=== PATIENT | male | born 1980 | race Two or more races ===

== ENCOUNTER 2024-12-13 16:18 | Inpatient (IN) | payer MEDICAID, OTHER ==
[~2024-12-13] VITALS: Ht 167.6 cm; Wt 106.7 kg
--- NOTE | 2024-12-13 16:48 | ED.PDOC ---
HPI (NEURO) HPI Comments 43 year old male presents to the ED with chief complaint of dizziness. Patient reports that he has been experiencing dizziness with associated left sided weakness since 1330 today. Patient relays that he had similar symptoms 2 years ago, but never went to an ED at that time. Patient's BP was noted to be 247/113 in triage. Patient denies any headache, chest pain, SOB, or N/V. At time of the initial evaluation, patient was BEFAST negative with equal strength bilaterally. Chief Complaint: Dizziness Time Seen by MD: 16:43 Reviewed Notes: Nurses Notes, Medications, Allergies Information Source: Patient, Relative (Sister) Mode of Arrival: Wheelchair Severity: Moderate Dizziness/Weakness Severity: Unable to do activities Headache Severity: None Timing: Days Duration: Since onset Prehospital treatment: None Weakness Location: (L) Sided, (L) Arm, Facial Onset: At rest Circumstances: Spontaneous Symptoms: Weakness Before: Normal History of: Hypertension Modifying factors: Nothing Associated Signs and Symptoms: Weakness Past Medical History PAST MEDICAL HISTORY: HTN Past Medical History (Other): Possible CVA event Surgical History: Denies all surgeries Family History Family History: Reviewed,noncontributory to illness Social History Smoker: Non-Smoker Alcohol: Denies ETOH Use Drugs: Denies Drug Use Lives In: Home Constitutional: denies: chills, diaphoresis, fatigue, fever, malaise, sweats, weakness, others EENTM: denies: blurred vision, double vision, ear bleeding, ear discharge, ear drainage, ear pain, ear ringing, eye pain, eye redness, hearing loss, mouth pain, mouth swelling, nasal discharge, nose bleeding, nose congestion, nose pain, photophobia, tearing, throat pain, throat swelling, voice changes, others Respiratory: denies: cough, hemoptysis, orthopnea, SOB at rest, shortness of breath, SOB with excertion, stridor, wheezing, others Cardiovascular: denies: chest pain, dizzy spells, diaphoresis, Dyspnea on exertion, edema, irregular heart beat, left arm pain, lightheadedness, palpitations, PND, syncope, others Gastrointestinal: denies: abdomen distended, abdominal pain, blood streaked bowels, constipated, diarrhea, dysphagia, difficulty swallowing, hematemesis, melena, nausea, poor appetite, poor fluid intake, rectal bleeding, rectal pain, vomiting, others Genitourinary: denies: burning, dysuria, flank pain, frequency, hematuria, incontinence, penile discharge, penile sore, pain, testicle pain, testicle swelling, urgency, others Neurological: reports: dizziness, left sided weakness; denies: fainting, headache, left sided numbness, numbness, paresthesia, pre-existing deficit, right sided numbness, right sided weakness, seizure, speech problems, tingling, tremors, weakness, others Musculoskeletal: denies: back pain, gout, joint pain, joint swelling, muscle pain, muscle stiffness, neck pain, others Integumetry: denies: bruises, change in color, change in hair/nails, dryness, laceration, lesions, lumps, rash, wounds, others Allergic/Immunocompromised: denies: Difficulty Healing, Frequent Infections, Hives, Itching, others Hematologic/Lymphatic: denies: anemia, blood clots, easy bleeding, easy bruising, swollen glands, others Endocrine: denies: excessive hunger, excessive sweating, excessive thirst, excessive urination, flushing, intolerance to cold, intolerance to heat, unexplained weight gain, unexplained weight loss, others Psychiatric: denies: anxiety, bipolar disorder, depression, hopeless, panic disorder, schizophrenia, sleepless, suicidal, others All Other Systems: Reviewed and Negative Physical Exam General Appearance: Moderate Distress ( [id number] distress due to headache and stroke concerns. Patient did seems slow to respond to questions.), Normal HEENT: Normal ENT Inspection, Pharynx Normal, TMs Normal, Other ( Facial evaluation was unremarkable. Patient displayed equal consistencies throughout patient will evaluation including puffing of the cheeks and closing of the eyes. No drooping noted) Neck: Full Range of Motion, Non-Tender, Normal, Normal Inspection Respiratory: Chest Non-Tender, Lungs Clear, No Accessory Muscle Use, No Respira tory Distress, Normal Breath Sounds Cardiovascular: No Edema, No JVD, No Murmur, No Gallop, Normal Peripheral Pulses, Regular Rate/Rhythm Breast Exam: Deferred Gastrointestinal: No Organomegaly, Non Tender, No Pulsatile Mass, Normal Bowel Sounds, Soft Genitalia: Deferred Pelvic: Deferred Rectal: Deferred Extremities: Other ( Patient displayed equal c d still operator strength bilaterally without any noted arm drift. Patient stated he had some weakness on his left arm and leg, but no atrophy was noted or signs of trauma or infection.) Musculoskeletal : Apperance: Normal Neurologic: NOT DONE Cerebellar Function: NOT DONE Reflexes: NOT DONE Skin: Dry, Normal Color, Warm Lymphatic: No Adenopathy Was a procedure done? Was a procedure done?: No Differential Diagnosis (SZ) Seizure: Hyperventilation, Psychogenic Seizure, Closed Head Injury, CVA/TIA, Hypocalcemia, Hypoglycemia, Idiopathic, Mass Lesion, Encephalopathy CVA: Electrolyte Imbalance X-Ray, Labs, Meds, VS Vital Signs Date Time Temp Pulse Resp B/P (MAP) Pulse Ox O2 Delivery O2 Flow Rate FiO2 12/13/24 18:37 119 12/13/24 17:33 172/106 12/13/24 17:20 Nasal Cannula* 2 28 12/13/24 17:15 98.9 109 23 188/111 (136) 98 98.9 12/13/24 16:34 98.0 128 22 247/113 (157) 96 98.0 12/13/24 16:32 126 Lab Test 12/13/24 20:04 12/13/24 18:15 12/13/24 16:42 Range/Units Troponin I High Sensitivity 9 7 6 </=54 ng/L White Blood Count 12.0 H 4.4-10.8 10^3/uL Red Blood Count 6.50 H 4.5-5.90 10^6/uL Hemoglobin 18.5 H 13.5-17.5 g/dL Hematocrit 53.9 H 41.0-53.0 % Mean Corpuscular Volume 82.9 80.0-100.0 fL Mean Corpuscular Hemoglobin 28.4 28.0-32.0 pg Mean Corpuscular Hemoglobin Concent 34.3 32.0-36.0 g/dL Red Cell Distribution Width 12.9 11.8-14.3 % Platelet Count 240 140-450 10^3/uL Mean Platelet Volume 8.6 6.9-10.8 fL Neutrophils (%) (Auto) 80.5 H 37.0-80.0 % Lymphocytes (%) (Auto) 13.3 10.0-50.0 % Monocytes (%) (Auto) 4.5 0.0-12.0 % Eosinophils (%) (Auto) 1.0 0.0-7.0 % Basophils (%) (Auto) 0.7 0.0-2.0 % Neutrophils # (Auto) 9.7 H 1.6-8.6 10 ^3/uL Lymphocytes # (Auto) 1.6 0.4-5.4 10 ^3/uL Monocytes # (Auto) 0.5 0-1.3 10 ^3/uL Eosinophils # (Auto) 0.1 0-0.8 10 ^3/uL Basophils # (Auto) 0.1 0-0.2 10 ^3/uL Nucleated Red Blood Cells 0.1 % Sodium Level 133 L 136-145 mmol/L Potassium Level 3.7 3.5-5.1 mmol/L Chloride Level 96 L 98-107 mmol/L Carbon Dioxide Level 22 20-31 mmol/L Anion Gap 15 5-15 Blood Urea Nitrogen 13 9-23 mg/dL Creatinine 1.07 0.700-1.30 mg/dL Glomerular Filtration Rate Calc 89 >90 mL/min BUN/Creatinine Ratio 12.1 10.0-20.0 Serum Glucose 357 H 74-106 mg/dL Calcium Level 9.9 8.7-10.4 mg/dL Total Bilirubin 1.0 0.2-1.0 mg/dL Aspartate Amino Transferase (AST) 25 13-40 U/L Alanine Aminotransferase (ALT) 49 H 7-40 U/L Alkaline Phosphatase 148 H 46-116 U/L B-Type Natriuretic Peptide 15.00 0-100 pg/mL Total Protein 7.5 5.7-8.2 g/dL Albumin 5.0 H 3.2-4.8 g/dL Current Medications Medications (Trade) Dose Ordered Sig/Javier Route Start Time Stop Time Status Last Admin Hydralazine HCl (Apresoline Injection) 20 mg ONCE ONCE IV 12/13/24 16:45 12/13/24 16:46 DC 12/13/24 17:33 Aspirin 81 mg ONCE ONCE PO 12/13/24 19:30 12/13/24 19:31 DC 12/13/24 19:30 Clopidogrel Bisulfate (Plavix) 75 mg ONCE ONCE PO 12/13/24 19:30 12/13/24 19:31 DC 12/13/24 20:10 X-Ray, Labs, Meds, VS Comment All studies performed the ED were evaluated by me personally.Urinalysis was pending at time of this note. Serum studies revealed a hyperglycemic state with an elevated alk-phos and a mild hyponatremia. EKG revealed a sinus or ectopic atrial tachycardia with a rate of 126. Right axis deviation with a MI interval 93 and a QT interval of 325. Patient's troponins were all unremarkable. Chest x-ray was unremarkable for any consolidation or intrapulmonary concerns. Initial CT of the head revealed a short segment 1 to 2 mm in length moderate stenosis of the origin of the left posterior cerebral artery from the basilar artery. Moderate stenosis of the super clinoid segment of the right ICA. No large vessel occlusion noted in the head and neck. Nursing notified me after 2 hours of being in the ED the patient started displays signs of left-sided facial weakness as well as left arm weakness. A CTA of the head and neck was ordered for evaluation of thrombotic concerns. A small 9 mm hypoattenuating focus is s een in the left anterior centrum semi level which may reflect indeterminate age infarct. Recommended a brain MRI for further evaluation. Chronic microvascular ischemic changes. I spoke with Dr. Kwan and Dr. Zoya bailey with respect of the patient's head CTs. Both stated that the patient did not appear to be having a stroke concern and additionally, patient was outside the window of any intervention. Patient received a tele neuro consult with Dr. Fenton. He advised that the patient appears to be experiencing some deficit due to the stenosis rather than a definitive stroke concern. He advised controlling blood pressure concerns as well as 81 mg of ASA and 75 mg of Plavix. Patient will be admitted for continued evaluation as well as neuro consultation and MRI of brain tomorrow. Time of 1ST Reevaluation: 17:43 Reevaluation 1ST: Unchanged Consultation: PCP, Neurology Patient Education/Counseling: Diagnosis, Treatment Family Education/Counseling: Diagnosis, Treatment, No Family Present Departure 1 Departure Time of Disposition: 21:59 Impression: Primary Impression: Encephalopathy Additional Impressions: Arterial stenosis Cerebrovascular event Disposition: 09 ADMITTED INPATIENT Condition: Fair Discharged With: Self, Relative Critical Care Note Critical Care Time?: Yes (45 min-critical care time only) Critical care comment: Due to a high probability of a clinically significant and possibly life- threatening deterioration, this patient required my highest level of preparedness to intervene emergently and therefore, I personally provided 45 mi nutes of critical care time exclusive of time spent on separate billable procedures. This critical care time includes, but is not limited to, obtaining additional history, re-examination of the patient, pulse oximetry assessment, ordering and reviewing of additional studies as well as arranging urgent treatment with the development of a management plan. Continued, evaluation of t he patient's response to treatment as well as frequent reassessments and discussions with other providers. Stability Stability form required: No Heart Score Heart Score: Heart Score Response (Comments) Value History Moderate Suspicious 1 EKG Normal 0 Age <45 0 Risk Factors 1 or 2 risk factors 1 Troponin Normal limit 0 Total 2 I personally scribed for SUZIE AKHTAR PAC ([email or web address]) on 12/13/24 at 16:48. Electronically submitted by Juan M Mead ([email or web address]). SUZIE AKHTAR PAC Dec 13, 2024 16:48
[2024-12-13 16:57] LABS: Basophils # (auto) 0.1 10 ^3/uL (0-0.2); Basophils % (auto) 0.7 % (0.0-2.0); Eosinophils # (auto) 0.1 10 ^3/uL (0-0.8); Hematocrit 53.9 % (41.0-53.0); Hemoglobin 18.5 g/dL (13.5-17.5); Lymphocytes # (auto) 1.6 10 ^3/uL (0.4-5.4); Lymphocytes % (auto) 13.3 % (10.0-50.0); Mean Corpuscular Hemoglobin 28.4 pg (28.0-32.0); Mean Corpuscular Hgb Conc. 34.3 g/dL (32.0-36.0); Mean Corpuscular Volume 82.9 fL (80.0-100.0); Monocytes # (auto) 0.5 10 ^3/uL (0-1.3); Monocytes % (auto) 4.5 % (0.0-12.0); Neutrophils # (auto) 9.7 10 ^3/uL (1.6-8.6); Neutrophils % (auto) 80.5 % (37.0-80.0); Nucleated Red Blood Cells % 0.1 %; Platelet Count (auto) 240 10^3/uL (140-450); Red Cell Distribution Width 12.9 % (11.8-14.3)
[2024-12-13 17:11] LABS: Anion Gap 15 (5-15); Aspartate Aminotransferase 25 U/L (13-40); BUN/Creatinine Ratio 12.1 (10.0-20.0); Blood Urea Nitrogen 13 mg/dL (9-23); Calcium 9.9 mg/dL (8.7-10.4); Carbon Dioxide 22 mmol/L (20-31); Potassium 3.7 mmol/L (3.5-5.1); Total Protein 7.5 g/dL (5.7-8.2)
--- NOTE | 2024-12-13 17:32 | DVH ---
EXAM: CT HEAD WITHOUT CONTRAST HISTORY: Altered mental status COMPARISON: None TECHNIQUE: Axial images were obtained and reformatted in coronal and sagittal planes. All CT scans at this medical facility are performed using dose modulation techniques as appropriate t o a performed exam including the following: Automated exposure control was utilized; adjustment of th e MA and/or KV according to patient size; and use of iterative reconstruction technique. CT Dose: CTDI volume is 53.94 mGy. Dose-length product is 973.84 mGy*cm FINDINGS: Supratentorial Region: No evidence for large acute territorial ischemia. Small left frontal subcorti nile white matter hypoattenuation. No intracranial hemorrhage is noted. Posterior Fossa: No acute abnormality. Brainstem: Unremarkable. Sellar/Suprasellar Region: Unremarkable. Ventricles, Cisterns, Sulci: Age-appropriate. Orbits: Unremarkable. Paranasal Sinuses: Unremarkable. Mastoid Air Cells: Unremarkable. Vasculature: Intracranial arterial calcified plaque formation noted. Bones/Soft Tissues: No acute abnormality. Other: None. IMPRESSION: 1. No large acute territorial ischemia or intracranial hemorrhage. 2. Small focus of subcortical white matter hypoattenuation that may represent chronic microvascular i schemic changes or other white matter disorders related to underlying migraine , Atherosclerotic dise ase, hypertension or demyelination disorders. Atherosclerotic calcification of the intracranial inter nal carotid, vertebral and basilar arteries are noted that are advanced for patient's age.
[2024-12-13] MEDS: hydrALAZINE HCL 20 MG/ML VL IV ONE (17:33)
--- NOTE | 2024-12-13 17:44 | DVH ---
EXAM: XY CHEST PORTABLE TECHNIQUE: Single frontal chest radiograph CLINICAL HISTORY: Shortness a breath COMPARISON: None Findings/Impression: Frontal chest radiograph demonstrates no acute osseous or superficial soft tissue abnormalities. The trachea is midline. The cardiac silhouette and mediastinum are within normal limits. No pneumothorax, pleural effusions, or consolidations.
[2024-12-13 17:49] LABS: Alanine Aminotransferase 49 U/L (7-40); Alkaline Phosphatase 148 U/L (46-116); Chloride 96 mmol/L (98-107); Glucose 357 mg/dL (74-106); Sodium 133 mmol/L (136-145)
[2024-12-13] MEDS: IOHEXOL 350 MG/ML 100ML IJ ONE (19:12)
--- NOTE | 2024-12-13 19:17 | BSKYNEURO ---
[facility] Note # Demographics Consult Type: Acute Stroke Level 2 (4.5-24 hrs) Patient Location: Emergency Room First Name: WALTER Last Name: MAREN OLIVEIRA Date of : 1980 Age: 43 Gender: Male Facility: [facility] Time of Initial Page (): 12/13/2024 18:37 Time of Return Call (): 12/13/2024 18:38 # HPI History: 43yo man presents with dizziness, slurred speech, left arm weakness, left lower leg weakness, and left facial droop. The symptoms were first noted by his sister at approximately 1:00 PM. The patient does not take blood thinning medications daily. Last Known Normal: 1300 today Associated Symptoms: - dizziness # Scores Time of exam and NIHSS (): 12/13/2024 18:54 Level of Consciousness 1a: [0] = Alert; keenly responsive LOC Questions 1b: [0] = Answers both questions correctly LOC Commands 1c: [0] = Performs both tasks correctly Best Gaze 2: [0] = Normal Visual 3: [0] = No visual loss Facial Palsy 4: [1] = Minor paralysis Motor Arm Left 5a: [1] = Drift Motor Arm Right 5b: [0] = No drift Motor Leg Left 6a: [1] = Drift Motor Leg Right 6b: [0] = No drift Limb Ataxia 7: [0] = Absent Sensory 8: [1] = Awjv-wy-soupbllt sensory loss Best Language 9: [0] = No aphasia Dysarthria 10: [1] = [id number] dysarthria Extinction and Inattention 11: [0] = No abnormality NIHSS Total: 5 # Exam Time of Exam (): 12/13/2024 18:56 Vitals: vital signs reviewed SBP: 170 DBP: 95 # PM-- Past Medical History: - hypertension - Diabetes Social History: - non-smoker - non-drinker Medications: - No antithrombotics or anticoagulants reported # Data Time Head CT personally read by me (): 12/13/2024 19:[address]: - no bleed - per radiologist read - preliminarily reviewed by me, please refer to radiology read for official reading CTA Head: no large vessel occlusion # Assessment Impression: - Ischemic Stroke (Acute) # Plan Thrombolytic/Intervention: NOT IV Thrombolysis or IA Intervention candidate Thrombolytic Exclusion: > 4.5 hours Intraarterial Exclusion: - clinical exam not consistent with presence of large vessel occlusion (LVO), can reconsider if LVO found on vascular imaging Target Blood Pressure: SBP < 220 Labs: - lipid panel Imaging: (urgency: STAT): - CT Angiogram Head and CT Angiogram Neck AND call back with results if abnormal Imaging: (urgency: routine): - MRI Brain without contrast Diagnostic Test: - echo with bubble study Therapy/Evaluation: - PT/OT evaluation - speech/swallow consultation - NPO until swallow evaluation Medication: - aspirin 81 mg PLUS clopidogrel (Plavix) 75 mg for 21 days, then monotherapy therafter DVT Prophylaxis: - SCD - chemical DVT prophylaxis Other: - If patient has any neurological deterioration please call me back immediately - LDL < 70 - telemetry monitoring - I have discussed my recommendations with the referring provider - permissive hypertension Disposition: admit # Demographics First Name: WALTER Last Name: MAREN OLIVEIRA Facility: [facility] Yes JOSE ALBERTO MORALES MD Dec 13, 2024 19:17
[2024-12-13] MEDS: ASPirin 81 mg TAB PO ONE (19:30)
--- NOTE | 2024-12-13 19:30 | DVH ---
CT STROKE CTH INDICATION: Altered mental status COMPARISON: CT HEAD WITHOUT CONTRAST on DOS: 12/13/24 TECHNIQUE: CT of the head without intravenous contrast. RADIATION DOSE: CTDIvol: 66.54 mGy, DLP: 1310.92 mGy*cm FINDINGS: Small 9 mm hypoattenuated focus is seen in the left anterior centrum semiovale which may reflect inde terminate age infarct. There is no evidence of acute intracranial hemorrhage, extra-axial collection, mass effect, midline s hift, herniation or hydrocephalus. The ventricles, sulci and cisterns are age appropriate. Chronic microvascular ischemic changes The visualized paranasal sinuses and mastoid air cells are clear. The surrounding soft tissues and o sseous structures are unremarkable. IMPRESSION: 1. Small 9 mm hypoattenuated focus is seen in the left anterior centrum semiovale which may reflect i ndeterminate age infarct. Consider brain MRI for further characterization 2. Chronic microvascular ischemic changes. 3. Critical findings discussed with Dr. Hernandez by Dr. Mera 4. via phone on 12/13/2024 07:20 PM.
--- NOTE | 2024-12-13 19:43 | DVH ---
EXAM: CT ANGIO HEAD/NECK HISTORY: Suspected CVA, LUE, Left facial weakness COMPARISON: None TECHNIQUE: CTA imaging of the neck and head was performed following the uneventful administration of intravenous contrast. Sagittal and coronal reformatted images were obtained from the source data. 3D /MIP post-processing of the source data set was performed and reviewed by the radiologist. Radiation Dose Information: CT Dose: CTDI volume is 23, 22 mGy. Dose-length product is 823 mGy*cm All CT scans at this medical facility are performed using dose modulation techniques as appropriate t o a performed exam including the following: Automated exposure control was utilized; adjustment of th e MA and/or KV according to patient size; and use of iterative reconstruction technique. FINDINGS: CTA Neck: Aortic Arch: Conventional branching. Right brachiocephalic artery: Unremarkable. Right carotid artery: Unremarkable. Right subclavian artery: Unremarkable. Right vertebral artery: Unremarkable. Left carotid artery: Minimal plaque formation at the carotid bulb without significant stenosis. Left subclavian artery: Unremarkable. Left vertebral artery: Unremarkable. Other: An approximate 1 cm hypodense nodule seen in the left thyroid lobe. CTA Head: Nikolai of Brock: The arteries of sun'aq Brock are patent, without evidence of aneurysm, stenosis or thrombosis. Atherosclerotic calcification of the bilateral carotid siphons most prominent in the rig ht supraclinoid segment with moderate stenosis. Mild calcification of the proximal basilar artery. S hort-segment ( 1-2 mm in length) moderate stenosis of the origin of the left posterior cerebral arter y from the basilar artery. Dural venous: Grossly unremarkable. Other: None. IMPRESSION: 1. Short-segment ( 1-2 mm in length) moderate stenosis of the origin of the left posterior cerebral a rtery from the basilar artery. 2. Moderate stenosis of the supraclinoid segment of the right ICA. 3. No large vessel occlusion noted in the head and neck. Critical Result: Stroke Alert Findings discussed with SUZIE AKHTAR at 12/13/2024 07:25 PM, and acknowledged receipt and understandin g of the findings. ..
[2024-12-13 20:00] VITALS: PULSE 116; RESP 25; O2SAT 98
[2024-12-13] MEDS: CLOPIDOGREL BISULFATE 75 MG TAB PO ONE (20:10)
--- NOTE | 2024-12-13 22:44 | DVHHP2 ---
History of Present Illness Reason for Visit: Left-sided weakness History of Present Illness The patient is a 43-year-old male with past medical history of hypertension and diabetes mellitus who presented to [facility] ED with complaint of dizziness. Patient reports symptoms progressively get worse with left-sided weakness, slurred speech, getting worse that prompted this visit. Patient reports having similar symptoms 2 years ago but never went to ED at that time. Patient was seen and evaluated in the ED, laboratory data shows WBC 12.0, platelets 240, sodium 133, potassium 3.7, BUN 13, creatinine 1.07, GFR 89, glucose 357, BNP 55.00, AST 25, ALT 49, albumin 5, troponin 9, blood pressure 247/113 trending down to 147/96, heart rate 128 trending down to 92, temperature 98.9 F, O2 saturation 97% on oxygen. Head CT revealing small 9 mm hypoattenuated focus is seen in the left anterior centrum semiovale which may reflect indeterminate age infarct. Patient was given hydralazine 10 mg IV x1, please see medication orders section in the computer. On my assessment, patient denied chest pain, no headache, no diaphoresis, currently on oxygen, no nausea, no vomiting, no fever, no chills. Patient was admitted for further evaluation and medical management. Past Medical History HTN, Possible CVA event Past Surgical History Denies all surgeries Family History Reviewed, noncontributory to the management of this case. Past Social History The patient lives at home, denies smoking, alcohol or illicit drugs abuse. Review of Systems Constitutional: Yes: Weakness; No: Fever, Chills, Sweats, Malaise, Other Eyes: No: Pain, Vision change, Conjunctivae inflammation, Eyelid inflammation, Other, Redness ENT: No: Ear pain, Ear discharge, Nose pain, Nose discharge, Nose congestion, Mouth pain, Mouth swelling, Throat pain, Throat swelling, Other Respiratory: No: Cough, Dry, Shortness of breath, SOB with excertion, Wheezing, Hemoptysis, Pleuritic Pain, Sputum, Wheezing, Other Cardiovascular: No: Chest Pain, Palpitations, Orthopnea, Paroxysmal Noc. Dyspnea, Edema, Lt Headedness, Other Gastrointestinal: No: Nausea, Vomiting, Abdominal Pain, Diarrhea, Constipation, Melena, Hematochezia, Other Genitourinary: No Dysuria, No Frequency, No Incontinence, No Hematuria, No Retention, No Other Musculoskeletal: No: other, neck pain, shoulder pain, arm pain, back pain, hand pain, leg pain, foot pain Neurological: Weakness (Left-sided), Other (Slurred speech); No: Numbness, Incoordination, Change in speech, Confusion, Seizures Allergies: Coded Allergies: NO KNOWN ALLERGIES (Unverified , 12/13/24) Exam Vital Signs Vital Signs Date Time Temp Pulse Resp B/P (MAP) Pulse Ox O2 Delivery O2 Flow Rate FiO2 12/13/24 18:37 119 12/13/24 17:33 172/106 12/13/24 17:20 Nasal Cannula* 2 28 12/13/24 17:15 98.9 23 98 98.9 General Appearance: Alert, Oriented X3, Cooperative, No acute distress HEENT: Atraumatic, PERRLA, EOMI, Mucous membr. moist/pink Respiratory: Clear to auscultation, Normal air movement Cardiovascular: Regular rate, Normal S1, Normal S2, No murmurs Abdominal: Normal bowel sounds, Soft, No tenderness, No hepatospenomegaly, No masses Extremities: No clubbing, No cyanosis, No edema, Normal pulses, No tenderness/swelling Skin: No rashes, No breakdown, No significant lesion Neuro: Normal tone, Sensation intact, Cranial nerves 3-12 NL, Reflexes 2+, Other (Generalized weakness, slurred speech.) Psych/Mental Status: Mental status NL, Mood NL Labs/Xrays Labs Test 12/13/24 20:04 12/13/24 16:42 Range/Units Troponin I High Sensitivity 9 </=54 ng/L White Blood Count 12.0 H 4.4-10.8 10^3/uL Red Blood Count 6.50 H 4.5-5.90 10^6/uL Hemoglobin 18.5 H 13.5-17.5 g/dL Hematocrit 53.9 H 41.0-53.0 % Mean Corpuscular Volume 82.9 80.0-100.0 fL Mean Corpuscular Hemoglobin 28.4 28.0-32.0 pg Mean Corpuscular Hemoglobin Concent 34.3 32.0-36.0 g/dL Red Cell Distribution Width 12.9 11.8-14.3 % Platelet Count 240 140-450 10^3/uL Mean Platelet Volume 8.6 6.9-10.8 fL Neutrophils (%) (Auto) 80.5 H 37.0-80.0 % Lymphocytes (%) (Auto) 13.3 10.0-50.0 % Monocytes (%) (Auto) 4.5 0.0-12.0 % Eosinophils (%) (Auto) 1.0 0.0-7.0 % Basophils (%) (Auto) 0.7 0.0-2.0 % Neutrophils # (Auto) 9.7 H 1.6-8.6 10 ^3/uL Lymphocytes # (Auto) 1.6 0.4-5.4 10 ^3/uL Monocytes # (Auto) 0.5 0-1.3 10 ^3/uL Eosinophils # (Auto) 0.1 0-0.8 10 ^3/uL Basophils # (Auto) 0.1 0-0.2 10 ^3/uL Nucleated Red Blood Cells 0.1 % Sodium Level 133 L 136-145 mmol/L Potassium Level 3.7 3.5-5.1 mmol/L Chloride Level 96 L 98-107 mmol/L Carbon Dioxide Level 22 20-31 mmol/L Anion Gap 15 5-15 Blood Urea Nitrogen 13 9-23 mg/dL Creatinine 1.07 0.700-1.30 mg/dL Glomerular Filtration Rate Calc 89 >90 mL/min BUN/Creatinine Ratio 12.1 10.0-20.0 Serum Glucose 357 H 74-106 mg/dL Calcium Level 9.9 8.7-10.4 mg/dL Total Bilirubin 1.0 0.2-1.0 mg/dL Aspartate Amino Transferase (AST) 25 13-40 U/L Alanine Aminotransferase (ALT) 49 H 7-40 U/L Alkaline Phosphatase 148 H 46-116 U/L B-Type Natriuretic Peptide 15.00 0-100 pg/mL Total Protein 7.5 5.7-8.2 g/dL Albumin 5.0 H 3.2-4.8 g/dL PATIENT: WALTER SIUACCT: [id number] UNIT: [id number] : 1980 LOC: ER ROOM / BED: / AGE / SEX: 43 / M ADM STATUS: REG ER SERVICE 1829 ORDERING PHYSICIAN: SUZIE HERNANDEZ PAC PROCEDURE(s): CTH - STROKE CTH REASON: Altered mental status ORDER NUMBER(s): [id number], ACCESSION NUMBER(s): [id number] CT STROKE CTH INDICATION: Altered mental status COMPARISON: CT HEAD WITHOUT CONTRAST on DOS: 12/13/24 TECHNIQUE: CT of the head without intravenous contrast. RADIATION DOSE: CTDIvol: 66.54 mGy, DLP: 1310.92 mGy*cm FINDINGS: Small 9 mm hypoattenuated focus is seen in the left anterior centrum semiovale which may reflect indeterminate age infarct. There is no evidence of acute intracranial hemorrhage, extra-axial collection, mass effect, midline shift, herniation or hydrocephalus. The ventricles, sulci and cisterns are age appropriate. Chronic microvascular ischemic changes The visualized paranasal sinuses and mastoid air cells are clear. The surrounding soft tissues and osseous structures are unremarkable. IMPRESSION: 1. Small 9 mm hypoattenuated focus is seen in the left anterior centrum semi ovale which may reflect indeterminate age infarct. Consider brain MRI for further characterization 2. Chronic microvascular ischemic changes. 3. Critical findings discussed with Dr. Hernandez by Dr. Mera 4. via phone on 12/13/2024 07:20 PM. ORDERING PHYSICIAN: USMAN LINN MD PROCEDURE(s): [place] - ANGIO HEAD/Neck REASON: Suspected CVA, LUE, Left facial weakness ORDER NUMBER(s): [id number], ACCESSION NUMBER(s): [id number] EXAM: CT ANGIO HEAD/NECK HISTORY: Suspected CVA, LUE, Left facial weakness COMPARISON: None TECHNIQUE: CTA imaging of the neck and head was performed following the uneventful administration of intravenous contrast. Sagittal and coronal reformatted images were obtained from the source data. 3D/MIP post-processing of the source data set was performed and reviewed by the radiologist. Radiation Dose Information: CT Dose: CTDI volume is 23, 22 mGy. Dose-length product is 823 mGy*cm All CT scans at this medical facility are performed using dose modulation techniques as appropriate to a performed exam including the following: Automated exposure control was utilized; adjustment of the MA and/or KV according to patient size; and use of iterative reconstruction technique. FINDINGS: CTA Neck: Aortic Arch: Conventional branching. Right brachiocephalic artery: Unremarkable. Right carotid artery: Unremarkable. Right subclavian artery: Unremarkable. Right vertebral artery: Unremarkable. Left carotid artery: Minimal plaque formation at the carotid bulb without significant stenosis. Left subclavian artery: Unremarkable. Left vertebral artery: Unremarkable. Other: An approximate 1 cm hypodense nodule seen in the left thyroid lobe. CTA Head: [place] of [place]: The arteries of [place] are patent, without evidence of aneurysm, stenosis or thrombosis. Atherosclerotic calcification of the bilateral carotid siphons most prominent in the right supraclinoid segment with moderate stenosis. Mild calcification of the proximal basilar artery. Short-segment (1-2 mm in length) moderate stenosis of the origin of the left posterior cerebral artery from the basilar artery. Dural venous: Grossly unremarkable. Other: None. IMPRESSION: 1. Short-segment (1-2 mm in length) moderate stenosis of the origin of the left posterior cerebral artery from the basilar artery. 2. Moderate stenosis of the supraclinoid segment of the right ICA. 3. No large vessel occlusion noted in the head and neck. Critical Result: Stroke Alert ORDERING PHYSICIAN: SUZIE HERNANDEZ PAC PROCEDURE(s): CXRP - CHEST PORTABLE REASON: Shortness a breath ORDER NUMBER(s): [id number], ACCESSION NUMBER(s): [id number] EXAM: XY CHEST PORTABLE TECHNIQUE: Single frontal chest radiograph CLINICAL HISTORY: Shortness a breath COMPARISON: None Findings/Impression: Frontal chest radiograph demonstrates no acute osseous or superficial soft tissue abnormalities. The trachea is midline. The cardiac silhouette and mediastinum are within normal limits. No pneumothorax, pleural effusions, or consolidations. Assessment/Plan Assessment/Plan Encephalopathy Arterial stenosis Cerebrovascular event Hypertensive urgency Leukocytosis, unspecified Diabetes mellitus with hyperglycemia Plan 1. Admit to telemetry unit 2. Breathing treatment 3. Pain control management 4. Management of fluids and electrolytes 5. Consultation for neurology 6. Diagnostic tests head CT 7. DVT prophylaxis on aspirin 8. Repeat labs CBC, CMP in a.m. 9. Continue with current medical management 10. Treatment plan discussed with patient and RN. Patient verbalized understanding. Plan discussed with: Patient, Other (RN) My Orders Orders - KLAUDIA BRIDGES DNP Procedure Category Date Status Time Metoprolol Tartrate PHA 12/14/24 Verified Tablet (Lopressor Ta 10:00 Aspirin Tablet PHA 12/14/24 Verified 10:00 Clopidogrel Bisulfate PHA 12/14/24 Verified (Plavix) 10:00 Atorvastatin (Lipitor) PHA 12/14/24 Verified 22:00 Hydralazine Injection PHA 12/13/24 Verified (Apresoline Inject 22:45 Amlodipine Tablet PHA 12/14/24 Verified (Norvasc Tablet) 10:00 Amlodipine Tablet PHA 12/13/24 Verified (Norvasc Tablet) 22:45 Hemoglobin A1c LAB 12/13/24 Verified 22:35 Glucose Blood PHA 12/14/24 Verified (Accu-Chek Comfort 00:00 Mild Sliding Scale PHA 12/14/24 Verified 00:00 Dextrose 50% Syringe PHA 12/13/24 Verified 22:45 Admit ADMIT 12/13/24 Verified 22:35 Allergies COY 12/13/24 Verified 22:35 Code Status CODE 12/13/24 Verified 22:35 0.9% Ns 1000 Ml PHA 12/13/24 Verified 22:45 Oxygen Per Hour RT 12/13/24 Verified 22:35 Hydrocodone-Acet PHA 12/13/24 Verified 5/325mg Tab ([place] 22:45 Problem List: (1) Encephalopathy (2) Arterial stenosis (3) Cerebrovascular event (4) Leukocytosis, unspecified (5) Hypertensive urgency (6) Diabetes mellitus with hyperglycemia Date of Service: Dec 13, 2024 Billing Provider: KLAUDIA BRIDGES DNP Common Visit Codes: [id number] INP/OBS CARE (HIGH) KLAUDIA BRIDGES DNP Dec 13, 2024 22:44
[2024-12-13] MEDS ORDERED: HYDROcodone-ACET 5/325MG TAB PO PRN (22:45)
[2024-12-13] MEDS ORDERED: ACETAMINOPHEN 325 MG TAB PO PRN (22:45)
[2024-12-13] MEDS ORDERED: DEXTROSE (50%) 50ML SYRG IV PRN (22:45)
[2024-12-13] MEDS ORDERED: MORPHINE SULFATE INJ 2 MG/ml SYRG IV PRN ×2 (22:45)
[2024-12-13] MEDS ORDERED: ONDANSETRON HCL 4 MG/2 ML VIAL IV PRN (22:45)
[2024-12-13] MEDS ORDERED: NITROGLYCERIN 0.4 MG SL TAB SL PRN (22:45)
[2024-12-13] MEDS ORDERED: DOCUSATE SOD 100 MG CAP PO PRN (22:45)
[2024-12-13] MEDS: SODIUM CHLORIDE 0.9% 1,000 ML IV SCH (23:39)
[2024-12-13] MEDS: amLODIPine BESYLATE 5 MG TAB PO ONE (23:46)
[2024-12-13] MEDS: ACCU-CHEK COMFORT CURVE STRIP VI SCH (23:47)
[2024-12-13] MEDS: InsuLIN REG 1unit/0.01ml Soln (100units/ml) SC SCH (23:47)
[2024-12-14] VITALS (9 sets, daily range): BP systolic 147–164; BP diastolic 90–106; PULSE 90–106; RESP 16–24; TEMP 97.7–98.6; O2SAT 92–98
[2024-12-14] MEDS: hydrALAZINE HCL 20 MG/ML VL IV PRN (01:32)
[2024-12-14 07:30] LABS: Basophils # (auto) 0.1 10 ^3/uL (0-0.2); Basophils % (auto) 0.4 % (0.0-2.0); Eosinophils # (auto) 0.5 10 ^3/uL (0-0.8); Eosinophils % (auto) 3.7 % (0.0-7.0); Hematocrit 47.4 % (41.0-53.0); Lymphocytes # (auto) 2.3 10 ^3/uL (0.4-5.4); Lymphocytes % (auto) 18.4 % (10.0-50.0); Mean Corpuscular Hemoglobin 29.4 pg (28.0-32.0); Mean Corpuscular Hgb Conc. 35.8 g/dL (32.0-36.0); Mean Corpuscular Volume 82.2 fL (80.0-100.0); Monocytes # (auto) 0.8 10 ^3/uL (0-1.3); Monocytes % (auto) 6.9 % (0.0-12.0); Neutrophils # (auto) 8.7 10 ^3/uL (1.6-8.6); Neutrophils % (auto) 70.6 % (37.0-80.0); Platelet Count (auto) 228 10^3/uL (140-450); Red Blood Cells 5.76 10^6/uL (4.5-5.90); Red Cell Distribution Width 12.9 % (11.8-14.3); White Blood Cell 12.4 10^3/uL (4.4-10.8)
[2024-12-14 07:42] LABS: Alanine Aminotransferase 32 U/L (7-40); Albumin 4.3 g/dL (3.2-4.8); Anion Gap 10 (5-15); Aspartate Aminotransferase 17 U/L (13-40); BUN/Creatinine Ratio 14.6 (10.0-20.0); Blood Urea Nitrogen 15 mg/dL (9-23); Calcium 9.3 mg/dL (8.7-10.4); Carbon Dioxide 26 mmol/L (20-31); Chloride 100 mmol/L (98-107); Total Protein 6.8 g/dL (5.7-8.2)
[2024-12-14 07:43] LABS: Alkaline Phosphatase 117 U/L (46-116); Glucose 276 mg/dL (74-106); Potassium 3.2 mmol/L (3.5-5.1); Sodium 136 mmol/L (136-145)
[2024-12-14 08:23] LABS: COVID19 ANTIGEN SOFIA FIA NEGATIVE (NEGATIVE)
[2024-12-14] MEDS: amLODIPine BESYLATE 5 MG TAB PO SCH (10:00)
[2024-12-14] MEDS: METOPROLOL TARTRATE 50 MG TAB PO SCH (10:00)
[2024-12-14] MEDS: CLOPIDOGREL BISULFATE 75 MG TAB PO SCH (11:14)
[2024-12-14] MEDS: ASPirin 81 mg TAB PO SCH (11:15)
--- NOTE | 2024-12-14 17:14 | DVH ---
EXAM: MRI BRAIN HEAD WO CONTRAST HISTORY: ALOC COMPARISON: None TECHNIQUE: MRI was performed utilizing multiple appropriate imaging planes and pulse sequences. FINDINGS: SUPRATENTORIAL REGION: No evidence for acute ischemia or intracranial hemorrhage. Subcentimeter foci of hemosiderin deposit noted in the bilateral basal ganglia. POSTERIOR FOSSA: Unremarkable. BRAINSTEM: No acute abnormality. Subcentimeter foci hemosiderin deposit noted. SELLAR/SUPRASELLAR REGION: Unremarkable. VENTRICLES, CISTERNS, SULCI: Age-appropriate. ORBITS: Unremarkable. PARANASAL SINUSES: Unremarkable. MASTOID AIR CELLS: Unremarkable. VASCULATURE: Unremarkable. BONES/ SOFT TISSUES: Unremarkable. OTHER: None. IMPRESSION: 1. No acute intracranial process identified. 2. Foci of old microbleeds in the bilateral basal ganglia and lo that may reflect chronic hypertens hernesto encephalopathy or prior trauma. Recommend clinical and biochemical correlation.
--- NOTE | 2024-12-14 18:00 | DVHPN2 ---
Subjective I am assuming the care of the patient was from today onwards patient was was admitted by the hospitalist team and I was assigned to see this patient today. Patient was has a left upper extremity weakness left lower extremity weakness and left facial droop as well as slurred speech. Patient was to be kept NPO until the swallow evaluation has been done. Reviewed: Care Plan Changes from previous H/P or p: No Changes Eyes: No Pain, No Vision change, No Conjunctivae inflammation, No Eyelid inflammation, No Other, No Redness ENT: No Ear pain, No Ear discharge, No Nose pain, No Nose discharge, No Nose congestion, No Mouth pain, No Mouth swelling, No Throat pain, No Throat swelling, No Other Cardiovascular: No Chest Pain, No Palpitations, No Orthopnea, No Paroxysmal Noc. Dyspnea, No Edema, No Lt Headedness, No Other Respiratory: No Cough, No Dry, No Shortness of breath, No SOB with excertion, No Wheezing, No Hemoptysis, No Pleuritic Pain, No Sputum, No Other Gastrointestinal: No Nausea, No Vomiting, No Abdominal Pain, No Diarrhea, No Constipation, No Melena, No Hematochezia, No Other Genitourinary: No Dysuria, No Frequency, No Incontinence, No Hematuria, No Retention, No Other Musculoskeletal: No other, No neck pain, No shoulder pain, No arm pain, No back pain, No hand pain, No leg pain, No foot pain Objective Vitals Vital Signs Date Time Temp Pulse Resp B/P (MAP) Pulse Ox O2 Delivery O2 Flow Rate FiO2 12/14/24 17:37 98.2 99 17 156/96 (116) 98 98.2 12/14/24 08:00 Nasal Cannula* 2 28 Intake/Output Intake and Output 12/14/24 07:00 Intake Total 0 ml Balance 0 ml Intake Oral 0 ml Exam HEENT pupils are reactive that has a left facial droop Neck is supple CV is S1-S2 regular rate and rhythm Respiratory viral clear GI posterior bowel sound Extremity no edema 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 left upper extremity 1/5 left lower extremity about 3/5 right upper extremity right lower extremities 5/5 Medications Current Medications Medications Dose Ordered Sig/Javier Route Start Time Stop Time Status Last Admin Dose Admin Metoprolol Tartrate 50 mg BID PO 12/14/24 10:00 Aspirin 81 mg DAILY PO 12/14/24 10:00 12/14/24 11:15 81 MG Clopidogrel Bisulfate 75 mg DAILY PO 12/14/24 10:00 12/14/24 11:14 75 MG Atorvastatin Calcium 20 mg HS PO 12/14/24 22:00 Hydralazine HCl 10 mg Q6HP PRN IV 12/13/24 22:45 12/14/24 11:49 10 MG Amlodipine Besylate 5 mg DAILY PO 12/14/24 10:00 Diagnostic Test (Pha) 1 strip IQ4HR 12/14/24 00:00 12/14/24 16:00 1 STRIP Insulin Human Regular IQ4HR SC 12/14/24 00:00 12/14/24 17:45 6 UNITS Dextrose 50 ml UD PRN IV 12/13/24 22:45 Sodium Chloride 1,000 ml @ 60 mls/hr [id number] IV 12/13/24 22:45 12/14/24 15:25 60 MLS/HR Acetaminophen/ Hydrocodone Bitart 1 tab Q4HP PRN PO 12/13/24 22:45 Ondansetron HCl 4 mg Q4HP PRN IV 12/13/24 22:45 Docusate Sodium 100 mg BIDPRN PRN PO 12/13/24 22:45 Acetaminophen 650 mg Q6HP PRN PO 12/13/24 22:45 Morphine Sulfate 2 mg Q4HPRN PRN IV 12/13/24 22:45 Nitroglycerin 0.4 mg Q5MINP PRN SL 12/13/24 22:45 Morphine Sulfate 2 mg Q30M PRN IV 12/13/24 22:45 Enoxaparin Sodium 40 mg DAILY SC 12/15/24 10:00 UNV Aspirin 300 mg DAILY KS 12/15/24 10:00 UNV Laboratory Results Laboratory Tests 12/14/24 06:59 Chemistry Test 12/14/24 06:59 Albumin 4.3 g/dL (3.2-4.8) Calcium Level 9.3 mg/dL (8.7-10.4) Total Protein 6.8 g/dL (5.7-8.2) LFT Test 12/14/24 06:59 Alanine Aminotransferase (ALT) 32 U/L (7-40) Alkaline Phosphatase 117 U/L (46-116) H Aspartate Amino Transferase (AST) 17 U/L (13-40) Total Bilirubin 1.0 mg/dL (0.2-1.0) Assessment/Plan Assessment/Plan 43-year-old male with a known history of diabetes type 2, hypertension who initially has been in the hospital with a left upper extremity left lower extremity weakness since 1:00 p.m. and left facial droop found to have 1. Left upper extremity/lower extremity weakness along with a left facial droop rule out acute CVA 2. Suspected previous history of CVA 3. Diabetes mellitus type 2 4. Hypertension -MRI brain noncontrast, neurology consultation, continue aspirin Plavix and statin if tolerates by mouth. Otherwise we will start has been 300 mg per rectal. -physical therapy evaluation ,occupational therapy evaluation, swallow evaluation and speech therapy. Plan discussed with: Patient, Other My Orders Orders - PAULA BANKS MD Procedure Category Date Status Time Enoxaparin Sodium PHA 12/14/24 Logged (Lovenox) 15:45 Enoxaparin Sodium PHA 12/15/24 Logged (Lovenox) 10:00 Brain Head Wo Contrast MRI 12/14/24 Resulted 15:45 Pt Request For Service PT 12/14/24 Logged 15:45 Echo 2d Mode Cardiac US 12/14/24 Transmitted DOP 15:59 Aspirin Suppository PHA 12/15/24 Logged 10:00 Date of Service: Dec 14, 2024 Billing Provider: PAULA BANKS MD Common Visit Codes: [id number] INP/OBS CARE(MOD) PAULA BANKS MD Dec 14, 2024 18:00
[2024-12-14] MEDS: ENOXAPARIN SOD 40 MG/0.4 ML SYRINGE SC ONE (20:18)
--- NOTE | 2024-12-14 20:24 | DVHSR ---
APPROVED REPORT EXAM: Two-dimensional and M-mode echocardiogram with Doppler, color Doppler and Bubble Study. Blood Pressure: 156/95 mmHg INDICATION ALOC RISK FACTORS Obesity: Height: 5'6", Weight: 237 DIMENSIONS LVDd4.4 (3.8-5.7cm)LA (2D)3.7 (1.9-4.0cm)Aortic Root3.7 (2.0-3.7cm) LVDs2.9 (2.5-4.0cm)LA (MM) (1.9-4.0cm)Aortic Cusp Exc2.2 (1.5-2.0cm) EF (%) 60.0 (55-70%)Rt. Atrium (1.9-4.0cm)Asc. Aorta cm IVSd1.5 (0.7-1.1cm)RV (D) (1.8-2.4cm) PWd1.4 (0.7-1.1cm) Mitral Valve MitralMitral Stenosis E wave0.73m/sMV Mean GR.mmHg A wave1.05m/sMV Peak GR.mmHg E/A ratio0.72D MVAcm2 DECEL [id number] 1/2 Timems Aortic Valve Aortic ValveAortic Stenosis V11.96m/Jeanine Mean GR.9mmHg V22.04m/Jeanine Peak GR.17mmHg LVOT Diameter2.2 (1.8-2.4cm)Doppler AVA3.65cm2 ATRIA Injection of bubbles documented no interatrial shunt. Other Information Technically limited study due to body habitus, patient lying towards right side. Conclusion MILD LVH AND MILD LV DIASTOLIC DYSFUNCTION LV EF IS 65% NORMAL VALVES NO EFFUSION
[2024-12-14] MEDS: ATORVASTATIN 20 MG TAB PO SCH (22:00)
[2024-12-15] VITALS (9 sets, daily range): BP systolic 138–157; BP diastolic 75–102; PULSE 72–96; RESP 18–20; TEMP 98–98.8; O2SAT 93–99
[2024-12-15] MEDS: ENOXAPARIN SOD 40 MG/0.4 ML SYRINGE SC SCH (10:12)
[2024-12-15] MEDS: ASPirin 300 MG RECTAL SUPP PR SCH (10:13)
--- NOTE | 2024-12-15 13:51 | ECG ---
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
--- NOTE | 2024-12-15 16:55 | DVHPN2 ---
Subjective Patient currently tolerating diet. Reviewed: Care Plan Changes from previous H/P or p: No Changes Eyes: No Pain, No Vision change, No Conjunctivae inflammation, No Eyelid inflammation, No Other, No Redness ENT: No Ear pain, No Ear discharge, No Nose pain, No Nose discharge, No Nose congestion, No Mouth pain, No Mouth swelling, No Throat pain, No Throat swelling, No Other Cardiovascular: No Chest Pain, No Palpitations, No Orthopnea, No Paroxysmal Noc. Dyspnea, No Edema, No Lt Headedness, No Other Respiratory: No Cough, No Dry, No Shortness of breath, No SOB with excertion, No Wheezing, No Hemoptysis, No Pleuritic Pain, No Sputum, No Other Gastrointestinal: No Nausea, No Vomiting, No Abdominal Pain, No Diarrhea, No Constipation, No Melena, No Hematochezia, No Other Genitourinary: No Dysuria, No Frequency, No Incontinence, No Hematuria, No Retention, No Other Musculoskeletal: No other, No neck pain, No shoulder pain, No arm pain, No back pain, No hand pain, No leg pain, No foot pain Objective Vitals Vital Signs Date Time Temp Pulse Resp B/P (MAP) Pulse Ox O2 Delivery O2 Flow Rate FiO2 12/15/24 13:23 98.7 85 20 157/92 (113) 95 98.7 12/15/24 07:47 Nasal Cannula* 2 28 Intake/Output Intake and Output 12/15/24 07:00 Intake Total 0 ml Output Total 20 ml Balance -20 ml Intake Oral 0 ml Output Urine Total 20 ml Exam HEENT pupils are reactive that has a left facial droop Neck is supple CV is S1-S2 regular rate and rhythm Respiratory viral clear GI posterior bowel sound Extremity no edema SOFT WATER [employer]CH[employer]IC motor sent left upper extremity 1/5 left lower extremity about 3/5 right upper extremity right lower extremities 5/5 Medications Current Medications Medications Dose Ordered Sig/Javier Route Start Time Stop Time Status Last Admin Dose Admin Clopidogrel Bisulfate 75 mg DAILY PO 12/14/24 10:00 12/14/24 11:14 75 MG Atorvastatin Calcium 20 mg HS PO 12/14/24 22:00 Diagnostic Test (Pha) 1 strip IQ4HR 12/14/24 00:00 12/15/24 12:00 1 STRIP Insulin Human Regular IQ4HR SC 12/14/24 00:00 12/15/24 12:00 4 UNITS Dextrose 50 ml UD PRN IV 12/13/24 22:45 Sodium Chloride 1,000 ml @ 60 mls/hr [id number] IV 12/13/24 22:45 12/15/24 08:31 60 MLS/HR Acetaminophen/ Hydrocodone Bitart 1 tab Q4HP PRN PO 12/13/24 22:45 Ondansetron HCl 4 mg Q4HP PRN IV 12/13/24 22:45 Docusate Sodium 100 mg BIDPRN PRN PO 12/13/24 22:45 Acetaminophen 650 mg Q6HP PRN PO 12/13/24 22:45 Morphine Sulfate 2 mg Q4HPRN PRN IV 12/13/24 22:45 Nitroglycerin 0.4 mg Q5MINP PRN SL 12/13/24 22:45 Morphine Sulfate 2 mg Q30M PRN IV 12/13/24 22:45 Enoxaparin Sodium 40 mg DAILY SC 12/15/24 10:00 12/15/24 10:12 40 MG Aspirin 300 mg DAILY GA 12/15/24 10:00 12/15/24 10:13 300 MG Laboratory Results Laboratory Tests 12/14/24 06:59 Assessment/Plan Assessment/Plan 43-year-old male with a known history of diabetes type 2, hypertension who initially has been in the hospital with a left upper extremity left lower extremity weakness since 1:00 p.m. and left facial droop found to have 1. Left upper extremity/lower extremity weakness along with a left facial droop rule out acute CVA 2. Suspected previous history of CVA 3. Diabetes mellitus type 2 4. Hypertension -MRI brain noncontrast showed no evidence of acute infarct neurology consultation, continue aspirin Plavix and statin if tolerates by mouth. -physical therapy evaluation ,occupational therapy evaluation, swallow evaluation and speech therapy. Plan discussed with: Patient, Other My Orders Orders - PAULA BANKS MD Procedure Category Date Status Time * Neurology Consult CONS 12/15/24 Transmitted 15:[address] 12/15/24 Logged 15:32 Consistent DIET 12/15/24 Transmitted Carb(Ccho)Diabetes Dinner Mechanical Soft Diet DIET 12/15/24 Transmitted Dinner Date of Service: Dec 15, 2024 Billing Provider: PAULA BANKS MD Common Visit Codes: [id number] INP/OBS CARE(MOD), NOT BILLABLE PAULA BANKS MD Dec 15, 2024 16:55
[2024-12-16] VITALS (8 sets, daily range): BP systolic 133–172; BP diastolic 78–100; PULSE 71–103; RESP 17–20; TEMP 97.6–98.8; O2SAT 94–98
--- NOTE | 2024-12-16 04:41 | DVH ---
EXAM: CT HEAD WITHOUT CONTRAST INDICATION: LEFT SIDE WEAKNESS TECHNIQUE: CT of the head without intravenous contrast. Coronal and sagittal reformatted images are s ubmitted. Radiation Dose : 1. Head: CT Dose: CTDI volume is 63.42 mGy. Dose-length product is 1143.22 mGy*cm The dose indicators for CT are the volume Computed Tomography (CT) Dose Index (CTDIvol) and the Dose Length Product (DLP), and are measured in units of mGy and mGy-cm, respectively. These indicators are not patient dose, but values generated from the CT scanner acquisition factors. The report includes radiation exposure data for exposures received during this examination. All CT scans at this medical facility are performed using dose modulation techniques as appropriate to a performed exam including the following: Automated exposure control was utilized; adjustment of the MA and/or KV according to patient size; and use of iterative reconstruction technique. COMPARISON: CT STROKE CTH on DOS: 12/13/24 FINDINGS: There is no evidence of acute intracranial hemorrhage, extra-axial collection, mass effect, midline s hift, herniation or hydrocephalus. Old left frontal lobe infarct versus white matter disease. There are additional periventricular hypod ensities, nonspecific, but likely reflecting sequelae of chronic microvascular ischemic changes. The ventricles, sulci and cisterns are age appropriate. The coffman-white differentiation is intact. The mastoid air cells are clear. There is mucosal thickening in the right maxillary sinus. No depressed calvarial fracture. The surrounding soft tissues are unremarkable. IMPRESSION: 1. No evidence of acute intracranial abnormality.
[2024-12-16] MEDS: hydrALAZINE HCL 20 MG/ML VL IV PRN (09:49)
[2024-12-16] MEDS: InsuLIN REG 1unit/0.01ml Soln (100units/ml) SC SCH (16:48)
[2024-12-16] MEDS: ALPRAZolam 0.5 MG TAB PO PRN (16:52)
[2024-12-16] MEDS: ACCU-CHEK COMFORT CURVE STRIP VI SCH (17:00)
--- NOTE | 2024-12-16 18:11 | DVHPN2 ---
Subjective Patient currently tolerating diet. Reviewed: Care Plan Changes from previous H/P or p: No Changes Eyes: No Pain, No Vision change, No Conjunctivae inflammation, No Eyelid inflammation, No Other, No Redness ENT: No Ear pain, No Ear discharge, No Nose pain, No Nose discharge, No Nose congestion, No Mouth pain, No Mouth swelling, No Throat pain, No Throat swelling, No Other Cardiovascular: No Chest Pain, No Palpitations, No Orthopnea, No Paroxysmal Noc. Dyspnea, No Edema, No Lt Headedness, No Other Respiratory: No Cough, No Dry, No Shortness of breath, No SOB with excertion, No Wheezing, No Hemoptysis, No Pleuritic Pain, No Sputum, No Other Gastrointestinal: No Nausea, No Vomiting, No Abdominal Pain, No Diarrhea, No Constipation, No Melena, No Hematochezia, No Other Genitourinary: No Dysuria, No Frequency, No Incontinence, No Hematuria, No Retention, No Other Musculoskeletal: No other, No neck pain, No shoulder pain, No arm pain, No back pain, No hand pain, No leg pain, No foot pain Objective Vitals Vital Signs Date Time Temp Pulse Resp B/P (MAP) Pulse Ox O2 Delivery O2 Flow Rate FiO2 12/16/24 17:00 98.4 89 20 145/84 (104) 94 98.4 12/16/24 08:00 Room Air* 0 21 Intake/Output Intake and Output 12/16/24 07:00 Intake Total 560 ml Output Total 2725 ml Balance -2165 ml Intake Oral 560 ml Output Urine Total 2725 ml Exam HEENT pupils are reactive that has a left facial droop Neck is supple CV is S1-S2 regular rate and rhythm Respiratory viral clear GI posterior bowel sound Extremity no edema 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 left upper extremity 1/5 left lower extremity about 3/5 right upper extremity right lower extremities 5/5 Medications Current Medications Medications Dose Ordered Sig/Javier Route Start Time Stop Time Status Last Admin Dose Admin Clopidogrel Bisulfate 75 mg DAILY PO 12/14/24 10:00 12/16/24 09:48 75 MG Atorvastatin Calcium 20 mg HS PO 12/14/24 22:00 12/15/24 20:26 20 MG Dextrose 50 ml UD PRN IV 12/13/24 22:45 Sodium Chloride 1,000 ml @ 60 mls/hr [id number] IV 12/13/24 22:45 12/15/24 08:31 60 MLS/HR Acetaminophen/ Hydrocodone Bitart 1 tab Q4HP PRN PO 12/13/24 22:45 Ondansetron HCl 4 mg Q4HP PRN IV 12/13/24 22:45 Docusate Sodium 100 mg BIDPRN PRN PO 12/13/24 22:45 Acetaminophen 650 mg Q6HP PRN PO 12/13/24 22:45 Morphine Sulfate 2 mg Q4HPRN PRN IV 12/13/24 22:45 Nitroglycerin 0.4 mg Q5MINP PRN SL 12/13/24 22:45 Morphine Sulfate 2 mg Q30M PRN IV 12/13/24 22:45 Hydralazine HCl 10 mg Q4HP PRN IV 12/16/24 08:15 12/16/24 09:49 10 MG Insulin Glargine 20 units HS SC 12/16/24 22:00 Diagnostic Test (Pha) 1 strip ACHS 12/16/24 17:00 12/16/24 17:00 1 STRIP Insulin Human Regular ACHS SC 12/16/24 17:00 12/16/24 16:48 4 UNITS Aspirin 81 mg DAILY PO 12/17/24 10:00 Alprazolam 0.5 mg TID PRN PO 12/16/24 16:00 12/16/24 16:52 0.5 MG Laboratory Results Laboratory Tests 12/14/24 06:59 Assessment/Plan Assessment/Plan 43-year-old male with a known history of diabetes type 2, hypertension who initially has been in the hospital with a left upper extremity left lower extremity weakness since 1:00 p.m. and left facial droop found to have 1. Left upper extremity/lower extremity weakness along with a left facial droop rule out acute CVA 2. Suspected previous history of CVA 3. Diabetes mellitus type 2 4. Hypertension -MRI brain noncontrast showed no evidence of acute infarct neurology consultation, continue aspirin Plavix and statin if tolerates by mouth. -physical therapy evaluation ,occupational therapy evaluation, swallow evaluation and speech therapy. -discharge plan to [facility] facility. Plan discussed with: Patient My Orders Orders - PAULA BANKS MD Procedure Category Date Status Time Hydralazine Injection PHA 12/16/24 In Process (Apresoline Inject 08:15 Insulin Lantus PHA 12/16/24 In Process (Glargine) (Lantus) 22:00 Glucose Blood PHA 12/16/24 In Process (Accu-Chek Comfort 17:00 Insulin R (Human) PHA 12/16/24 In Process (Insulin R) 17:00 Aspirin Tablet PHA 12/17/24 In Process 10:00 Alprazolam Tablet PHA 12/16/24 In Process (Xanax Tablet) 16:00 Date of Service: Dec 16, 2024 Billing Provider: PAULA BANKS MD Common Visit Codes: [id number] INP/OBS CARE(MOD) PAULA BANKS MD Dec 16, 2024 18:11
[2024-12-16] MEDS: INSULIN LANTUS (GLARGINE) 1 /0.01ml (100units/ml) SC SCH (21:11)
[2024-12-17] VITALS (8 sets, daily range): BP systolic 142–169; BP diastolic 92–116; PULSE 75–112; RESP 16–20; TEMP 97.1–98.3; O2SAT 93–97
[2024-12-17] MEDS: ASPirin 81 mg TAB PO SCH (09:40)
--- NOTE | 2024-12-17 12:47 | ECG ---
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
--- NOTE | 2024-12-17 16:40 | DVHPN2 ---
Subjective Patient currently tolerating diet. Reviewed: Care Plan Changes from previous H/P or p: No Changes Eyes: No Pain, No Vision change, No Conjunctivae inflammation, No Eyelid inflammation, No Other, No Redness ENT: No Ear pain, No Ear discharge, No Nose pain, No Nose discharge, No Nose congestion, No Mouth pain, No Mouth swelling, No Throat pain, No Throat swelling, No Other Cardiovascular: No Chest Pain, No Palpitations, No Orthopnea, No Paroxysmal Noc. Dyspnea, No Edema, No Lt Headedness, No Other Respiratory: No Cough, No Dry, No Shortness of breath, No SOB with excertion, No Wheezing, No Hemoptysis, No Pleuritic Pain, No Sputum, No Other Gastrointestinal: No Nausea, No Vomiting, No Abdominal Pain, No Diarrhea, No Constipation, No Melena, No Hematochezia, No Other Genitourinary: No Dysuria, No Frequency, No Incontinence, No Hematuria, No Retention, No Other Musculoskeletal: No other, No neck pain, No shoulder pain, No arm pain, No back pain, No hand pain, No leg pain, No foot pain Objective Vitals Vital Signs Date Time Temp Pulse Resp B/P (MAP) Pulse Ox O2 Delivery O2 Flow Rate FiO2 12/17/24 13:00 97.6 101 18 169/104 (125) 97 97.6 12/17/24 08:00 Room Air* 0 21 Intake/Output Intake and Output 12/17/24 07:00 Intake Total 1180 ml Output Total 950 ml Balance 230 ml Intake Oral 1180 ml Output Urine Total 950 ml Exam HEENT pupils are reactive that has a left facial droop Neck is supple CV is S1-S2 regular rate and rhythm Respiratory viral clear GI posterior bowel sound Extremity no edema 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 left upper extremity three/5 left lower extremity about 3/5 right upper extremity right lower extremities 5/5 Medications Current Medications Medications Dose Ordered Sig/Javier Route Start Time Stop Time Status Last Admin Dose Admin Clopidogrel Bisulfate 75 mg DAILY PO 12/14/24 10:00 12/17/24 09:40 75 MG Atorvastatin Calcium 20 mg HS PO 12/14/24 22:00 12/16/24 21:01 20 MG Dextrose 50 ml UD PRN IV 12/13/24 22:45 Sodium Chloride 1,000 ml @ 60 mls/hr [id number] IV 12/13/24 22:45 12/15/24 08:31 60 MLS/HR Acetaminophen/ Hydrocodone Bitart 1 tab Q4HP PRN PO 12/13/24 22:45 Ondansetron HCl 4 mg Q4HP PRN IV 12/13/24 22:45 Docusate Sodium 100 mg BIDPRN PRN PO 12/13/24 22:45 Acetaminophen 650 mg Q6HP PRN PO 12/13/24 22:45 Morphine Sulfate 2 mg Q4HPRN PRN IV 12/13/24 22:45 Nitroglycerin 0.4 mg Q5MINP PRN SL 12/13/24 22:45 Morphine Sulfate 2 mg Q30M PRN IV 12/13/24 22:45 Hydralazine HCl 10 mg Q4HP PRN IV 12/16/24 08:15 12/17/24 11:44 10 MG Insulin Glargine 20 units HS SC 12/16/24 22:00 12/16/24 21:11 20 UNITS Diagnostic Test (Pha) 1 strip ACHS 12/16/24 17:00 12/17/24 11:43 1 STRIP Insulin Human Regular ACHS SC 12/16/24 17:00 12/17/24 11:44 8 UNITS Aspirin 81 mg DAILY PO 12/17/24 10:00 12/17/24 09:40 81 MG Alprazolam 0.5 mg TID PRN PO 12/16/24 16:00 12/16/24 16:52 0.5 MG Laboratory Results Laboratory Tests 12/14/24 06:59 Assessment/Plan Assessment/Plan 43-year-old male with a known history of diabetes type 2, hypertension who initially has been in the hospital with a left upper extremity left lower extremity weakness since 1:00 p.m. and left facial droop found to have 1. Left upper extremity/lower extremity weakness along with a left facial droop rule out acute CVA 2. Suspected previous history of CVA 3. Diabetes mellitus type 2 4. Hypertension -MRI brain noncontrast showed no evidence of acute infarct neurology consultation, continue aspirin Plavix and statin if tolerates by mouth. -physical therapy evaluation ,occupational therapy evaluation, swallow evaluation and speech therapy. -patient was insurance does not cover longterm facility arrangement, we will arrange home health home safety home PT OT, shower chair as well as front wheel walker Plan discussed with: Patient, Other My Orders Orders - PAULA BANKS MD Procedure Category Date Status Time * Motor Operator CONS 12/16/24 Transmitted Consult * Motor Operator CONS 12/17/24 Transmitted Consult * Neurology Consult CONS 12/17/24 Transmitted 15:23 Date of Service: Dec 17, 2024 Billing Provider: PAULA BANKS MD Common Visit Codes: [id number] INP/OBS CARE(MOD) PAULA BANKS MD Dec 17, 2024 16:40
--- NOTE | 2024-12-17 21:34 | DVHINCON2 ---
Date of service: Dec 17, [address] Hassan Reason for Consultation Left-sided weakness History of Present Illness Mr. Ole Tee is a 43 years old right-handed gentleman with a history of hypertension, diabetes, obesity, he came to the hospital on 12/13/2024 with a chief company of dizziness, left-sided weakness. At this time, he is alert and fully oriented, he was no aphasia, but of the slurred speech, he provided the following history On 12/13/2024, he developed slurred speech, left facial weakness, left arm than leg weakness in that he could hardly move them, over the last few days, he was seen obvious improvement On arrival to the ER, the patient was blood pressure was extremely high, 247/113 The patient was denies stroke previously He snores, but is mild, he reports a refreshing sleep, he denies excessive daytime sleepiness or fatigue CBC, 12/14/2024: Unremarkable CMP, 12/14/2024: Unremarkable CT head, 12/16/2024: No evidence of acute intracranial abnormality CT head, neck, 12/13/2024: 1. Short-segment ( 1-2 mm in length) moderate stenosis of the origin of the left posterior cerebral artery from the basilar artery. 2. Moderate stenosis of the supraclinoid segment of the right ICA. 3. No large vessel occlusion noted in the head and neck. MRI head, 12/14/2024: 1. No acute intracranial process identified. 2. Foci of old microbleeds in the bilateral basal ganglia and lo that may reflect chronic hypertensive encephalopathy or prior trauma. Recommend clinical and biochemical correlation (I have reviewed the films myself, I think this acute stroke in the right pontine region) Past Medical History Hypertension, diabetes, obesity Past Surgical History Left hip fracture repair Family History: Patient reports no known family medical history. Family History Diabetes Social History He was no history of smoking, alcohol or drug abuse Allergies: Coded Allergies: NO KNOWN ALLERGIES (Unverified , 12/13/24) Current Medications Current Medications Medications (Trade) Dose Ordered Sig/Javier Route PRN Reason Start Time Stop Time Status Last Admin Insulin Glargine (Lantus) 20 units HS SC 12/16/24 22:00 12/16/24 21:11 Aspirin 81 mg DAILY PO 12/17/24 10:00 12/17/24 09:40 Review of Systems As above, the other systems are negative Vital Signs Vital Signs Date Time Temp Pulse Resp B/P (MAP) Pulse Ox O2 Delivery O2 Flow Rate FiO2 12/17/24 20:26 159/116 12/17/24 20:00 102 12/17/24 17:00 98.3 19 97 98.3 12/17/24 08:00 Room Air* 0 21 Physical Exam GENERAL EXAM: General: the patient is well developed and nourished. No acute distress. HEENT: Normocephalic, neck is supple, no carotid bruits. No mass. RESPIRATORY: Normal respiratory effort with symmetrical lung expansion. Lungs clear to auscultation. CARDIOVASCULAR: Regular rate and rhythm with no murmurs. S1, S2. ABDOMEN: Soft, nontender, normal bowel sound NEUROLOGICAL: MENTAL STATUS: Awake and alert. Oriented to person, place, time and general circumstances. Able to give personal history. SPEECH, LANGUAGE, HIGHER CORTICAL FUNCTION: no aphasia he has cyid-bp-ieipxria dysathria. CRANIAL NERVES: #2: Intact visual lea to confrontation. The optic discs were sharp.. #3,4,6: Pupils are equal, round and reactive. EOMs full and conjugate. No nystagmus. #5: Facial sensation intact in all three divisions bilaterally. Mandibular strength intact. #7: Left facial weakness of upper motor neuron pattern #8: Hearing grossly normal to voice. #9,10: Uvula and soft palate rise in the midline. Swallow and voice are normal. #11: Trapezius and sternomastoid strength intact bilaterally. #12: Tongue midline. No fasciculations or atrophy. SENSATION: Sensation to touch and pinprick is normal. MOTOR: Normal tone in the upper and lower extremity. Normal muscle bulk. No fasciculations. No abnormal movements or posturing. Muscle strength of the major groups in the left extremities is 5/5. Muscle strength of the major groups in the right extremities is: Upper extremity: 3/5, lower extremity: 4/5 REFLEXES: Deep tendon reflexes normal and symmetrical. No pathological reflexes. CEREBELLAR/COORDINATION: Finger to nose is unremarkable GAIT/STATION: deferred Labs/Diagnostic Data Labs Test 12/17/24 17:09 12/14/24 06:59 12/13/24 20:04 12/13/24 16:42 Range/Units POC Glucose 176 H 70-106 mg/dl White Blood Count 12.4 H 4.4-10.8 10^3/uL Red Blood Count 5.76 4.5-5.90 10^6/uL Hemoglobin 17.0 13.5-17.5 g/dL Hematocrit 47.4 # 41.0-53.0 % Mean Corpuscular Volume 82.2 80.0-100.0 fL Mean Corpuscular Hemoglobin 29.4 28.0-32.0 pg Mean Corpuscular Hemoglobin Concent 35.8 32.0-36.0 g/dL Red Cell Distribution Width 12.9 11.8-14.3 % Platelet Count 228 140-450 10^3/uL Mean Platelet Volume 8.4 6.9-10.8 fL Neutrophils (%) (Auto) 70.6 37.0-80.0 % Lymphocytes (%) (Auto) 18.4 10.0-50.0 % Monocytes (%) (Auto) 6.9 0.0-12.0 % Eosinophils (%) (Auto) 3.7 0.0-7.0 % Basophils (%) (Auto) 0.4 0.0-2.0 % Neutrophils # (Auto) 8.7 H 1.6-8.6 10 ^3/uL Lymphocytes # (Auto) 2.3 0.4-5.4 10 ^3/uL Monocytes # (Auto) 0.8 0-1.3 10 ^3/uL Eosinophils # (Auto) 0.5 0-0.8 10 ^3/uL Basophils # (Auto) 0.1 0-0.2 10 ^3/uL Nucleated Red Blood Cells 0.0 % Sodium Level 136 136-145 mmol/L Potassium Level 3.2 L 3.5-5.1 mmol/L Chloride Level 100 98-107 mmol/L Carbon Dioxide Level 26 20-31 mmol/L Anion Gap 10 5-15 Blood Urea Nitrogen 15 9-23 mg/dL Creatinine 1.03 0.700-1.30 mg/dL Glomerular Filtration Rate Calc 94 >90 mL/min BUN/Creatinine Ratio 14.6 10.0-20.0 Serum Glucose 276 H 74-106 mg/dL Calcium Level 9.3 8.7-10.4 mg/dL Total Bilirubin 1.0 0.2-1.0 mg/dL Aspartate Amino Transferase (AST) 17 13-40 U/L Alanine Aminotransferase (ALT) 32 7-40 U/L Alkaline Phosphatase 117 H 46-116 U/L Total Protein 6.8 5.7-8.2 g/dL Albumin 4.3 3.2-4.8 g/dL SARS-CoV-2 Antigen (Rapid) Negative NEGATIVE Troponin I High Sensitivity 9 </=54 ng/L Hemoglobin A1c 11.1 H <5.7 % A1C B-Type Natriuretic Peptide 15.00 0-100 pg/mL Assessment Acute stroke (I think there is evidence of acute stroke in his MRI brain scan) Acute left hemiparesis secondary to acute stroke Acute dysarthria secondary to acute stroke Obesity Hypertension emergency Plan/Recommendation Monitoring Supportive treatment Telemetry UDS Lipitor profile DALE Aspirin 81 mg daily Plavix 75 mg daily for 21 days Atorvastatin 20 mg daily Up to chair Physical therapy DVT prophylaxis/HCT Stroke risk factors discussed More recommendation per clinical course Prognosis: Poor This medical document was created using an electronic medical record system with [employer] dictation system. Although this document has been carefully reviewed, there may still be some phonetic and typographical errors. These areas are purely typographical due to imperfections of the software programs, and do not reflect any compromise in the patient's medical care. Plan discussed with: Patient, Other BETSY CELESTE MD Dec 17, 2024 21:34
[2024-12-17] MEDS: CLOPIDOGREL BISULFATE 75 MG TAB PO SCH (22:29)
[2024-12-17 23:22] LABS: Triglycerides 128 mg/dL (< 150)
[2024-12-17 23:23] LABS: LDL Cholesterol 129 mg/dL (< 100)
[2024-12-17 23:24] LABS: Cholesterol 176 mg/dL (< 200)
[2024-12-17 23:26] LABS: HDL Cholesterol 28 mg/dL (40-59)
[2024-12-18] VITALS (8 sets, daily range): BP systolic 132–161; BP diastolic 86–94; PULSE 70–98; RESP 16–20; TEMP 97.8–98.9; O2SAT 94–98
--- NOTE | 2024-12-18 09:25 | DVHPN2 ---
Progress Note - Dictate Date Seen: Dec 18, 2024 Medical Necessity Reason Pt with a Central, PICC or Fol: No Subjective Mr. Ole Tee is a 43 years old right-handed gentleman with a history of hypertension, diabetes, obesity, he came to the hospital on 12/13/2024 with a chief company of dizziness, left-sided weakness. I have seen and examined the patient was, I have discussed with his nurse, the case was discussed with Dr. Hassan Slurred speech is better. The left upper extremity weakness better. He walked with his walker x2 today No new complaints CBC, 12/14/2024: Unremarkable CMP, 12/14/2024: Unremarkable TG/HDL/LDL/HDL, 12/17/2024: 128/176/129/28 CT head, 12/16/2024: No evidence of acute intracranial abnormality CT head, neck, 12/13/2024: 1. Short-segment ( 1-2 mm in length) moderate stenosis of the origin of the left posterior cerebral artery from the basilar artery. 2. Moderate stenosis of the supraclinoid segment of the right ICA. 3. No large vessel occlusion noted in the head and neck. MRI head, 12/14/2024: Clustered foci of subcentimeter restricted diffusion and associated T2/FLAIR abnormality in the right brainstem/ medulla is suspicious for acute infarct vital signs Vital Sign Date Time Temp Pulse Resp B/P (MAP) Pulse Ox O2 Delivery O2 Flow Rate FiO2 12/18/24 06:47 161/101 12/18/24 05:00 98.0 82 19 96 98.0 12/17/24 20:00 Room Air* 0 21 Total Intake and Output 12/17/24 12/17/24 12/18/24 15:00 23:00 07:00 Intake Total 635 ml 1000 ml Output Total 700 ml Balance -65 ml 1000 ml medications Current Medications Medications Dose Ordered Sig/Javier Route Start Time Stop Time Status Last Admin Dose Admin Atorvastatin Calcium 20 mg HS PO 12/14/24 22:00 12/17/24 22:29 20 MG Dextrose 50 ml UD PRN IV 12/13/24 22:45 Sodium Chloride 1,000 ml @ 60 mls/hr [id number] IV 12/13/24 22:45 12/15/24 08:31 60 MLS/HR Acetaminophen/ Hydrocodone Bitart 1 tab Q4HP PRN PO 12/13/24 22:45 Ondansetron HCl 4 mg Q4HP PRN IV 12/13/24 22:45 Docusate Sodium 100 mg BIDPRN PRN PO 12/13/24 22:45 Acetaminophen 650 mg Q6HP PRN PO 12/13/24 22:45 Morphine Sulfate 2 mg Q4HPRN PRN IV 12/13/24 22:45 Nitroglycerin 0.4 mg Q5MINP PRN SL 12/13/24 22:45 Morphine Sulfate 2 mg Q30M PRN IV 12/13/24 22:45 Hydralazine HCl 10 mg Q4HP PRN IV 12/16/24 08:15 12/18/24 06:47 10 MG Insulin Glargine 20 units HS SC 12/16/24 22:00 12/17/24 22:27 20 UNITS Diagnostic Test (Pha) 1 strip ACHS 12/16/24 17:00 12/18/24 06:02 1 STRIP Insulin Human Regular ACHS SC 12/16/24 17:00 12/17/24 22:26 2 UNITS Aspirin 81 mg DAILY PO 12/17/24 10:00 12/18/24 08:42 81 MG Alprazolam 0.5 mg TID PRN PO 12/16/24 16:00 12/18/24 08:42 0.5 MG Clopidogrel Bisulfate 75 mg DAILY PO 12/17/24 22:15 01/03/25 23:00 12/18/24 08:42 75 MG objective General: the patient is well developed and nourished. No acute distress. MENTAL STATUS: Awake and alert. Oriented to person, place, time and general circumstances. Able to give personal history. SPEECH, LANGUAGE, HIGHER CORTICAL FUNCTION: no aphasia he has imop-mg-wjtzoaks dysathria. CRANIAL NERVES: Pupils are equal, round and reactive. EOMs full and conjugate. No nystagmus. Facial sensation intact in all three divisions bilaterally. Mandibular strength intact. Left facial weakness of upper motor neuron pattern. Hearing grossly normal to voice. SENSATION: Sensation to touch and pinprick is normal. MOTOR: Normal tone in the upper and lower extremity. Normal muscle bulk. No fasciculations. No abnormal movements or posturing. Muscle strength of the major groups in the left extremities is 5/5. Muscle strength of the major groups in the right extremities is: Upper extremity: 3/5, lower extremity: 4/5 REFLEXES: Deep tendon reflexes normal and symmetrical. No pathological reflexes. CEREBELLAR/COORDINATION: Finger to nose is unremarkable GAIT/STATION: deferred laboratory and microbiology Laboratory Tests 12/14/24 06:59 Test 12/14/24 06:59 Range/Units Serum Glucose 276 H 74-106 mg/dL Problem List Acute pontine stroke Acute left hemiparesis secondary to acute stroke Acute dysarthria secondary to acute stroke Obesity Hypertension emergency Assessment/Plan Monitoring Supportive treatment Telemetry UDS DALE Aspirin 81 mg daily Plavix 75 mg daily for 21 days Atorvastatin 20 mg daily Up to chair Physical therapy DVT prophylaxis/HCT Stroke risk factors discussed More recommendation per clinical course This medical document was created using an electronic medical record system with [employer] dictation system. Although this document has been carefully reviewed, there may still be some phonetic and typographical errors. These areas are purely typographical due to imperfections of the software programs, and do not reflect any compromise in the patient's medical care. Prognosis poor Dietary Evaluation Review Recommendations by RD: Dietary education by RD Comments: 1) Remain NPO until swallow evaluation by MOTOR TESTER 2) If patient is NPO for > 7 days, consider EN/TPN to meet at least 75% estimated daily needs 3) [facility] diet order when medically feasible, pending MOTOR TESTER approval 4) Refer to outpatient RD/[facility] for diabetes education and weight management 5) F/u with PT/OT to determine appropriate interventions Expected Outcomes/Goals: 1) patient to receive nutrition within 7 days 2) diet to advance 3) labs to improve 4) f/u in 3 days Plan discussed with: Patient, Other BETSY CELESTE MD Dec 18, 2024 09:25
--- NOTE | 2024-12-18 13:27 | DVHINCON2 ---
Date Seen: Dec 18, 2024 Referring Physician MD Stanislav Reason for Consultation DALE History of Present Illness This is a 43-year-old man who presented to the emergency room with a chief complaint of dizziness. The patient presented with complaints of dizziness associated with left facial droop, left sided hemiparesis, and slurred speech. He has been evaluated by Neurology team with findings of an acute CVA and reque sting a transesophageal echocardiogram to rule out cardioembolic source. Patient denies a history of cardiac arrhythmias or congenital heart disease. He presented with a systolic blood pressure in the 240s mmHg stating he is compliant with his medical therapy at home. A 12 lead electrocardiogram revealed a sinus tachycardia rhythm. Significant medical history includes hypertension and history of CVA two years ago. Past Medical History Past medical history reviewed. No other significant than mentioned above. Past Surgical History Past surgical history reviewed. No other significant than mentioned above. Family History: Patient reports no known family medical history. Family History Family history reviewed. Social History Denies the use of illicit drugs or tobacco use. Admits to occasional alcohol use. Allergies: Coded Allergies: NO KNOWN ALLERGIES (Unverified , 12/13/24) Home Meds Can not remember home medications. Current Medications Current Medications Medications (Trade) Dose Ordered Sig/Javier Route PRN Reason Start Time Stop Time Status Last Admin Clopidogrel Bisulfate (Plavix) 75 mg DAILY PO 12/17/24 22:15 01/03/25 23:00 12/18/24 08:42 Review of Systems Constitutional: No symptom reported Ears, Nose, & Throat: No symptom reported Eyes: No symptom reported Neurological: Left facial droop, left-sided hemiparesis, slurred speech Pulmonary/Respiratory: No symptom reported Cardiovascular: No symptom reported Gastrointestinal: No symptom reported Genitourinary: No symptom reported Musculoskeletal: No symptom reported Skin: No symptom reported Psychiatric: No symptom reported Endocrine: No symptom reported Hemotologic/Lymphatic: No symptom reported Vital Signs Vital Signs Date Time Temp Pulse Resp B/P (MAP) Pulse Ox O2 Delivery O2 Flow Rate FiO2 12/18/24 08:10 89 16 94 Room Air* 0 21 12/18/24 06:47 161/101 12/18/24 05:00 98.0 98.0 Physical Exam General Appearance: Cooperative. Well developed. Morbidly obese. In no acute distress Head Exam: Normal inspection Neck Exam: Normal inspection. Non-tender. Normal alignment Pulmonary/Respiratory: Chest non-tender. Clear bilateral breath sounds Cardiovascular/Chest: Regular rate and rhythm. S1, S2. NSR. No murmurs. No JVD. Peripheral Pulses: 2+ Radial (R). 2+ Radial (L). 2+ Pedal (R). 2+ Pedal (L) Abdominal Exam: Normal bowel sounds. Soft. Nontender. No hepatospenomegaly. No masses Ankle Exam: Negative ankle edema Lower extremities: Negative lower extremity edema Neuro/Mental Status: A&O x4. Coherent. Left facial droop/left-sided hemiparesis. Slurred speech Thoughts/Psych: Normal thought pattern. Appropriate mood and affect. Good judgement and insight Appearance: In no acute distress Skin Exam: Normal inspection. Normal color. Warm. Dry Labs/Diagnostic Data Labs Test 12/18/24 12:15 12/17/24 22:39 12/14/24 06:59 12/13/24 20:04 Range/Units POC Glucose 199 H 70-106 mg/dl Triglycerides Level 128 < 150 mg/dL Cholesterol Level 176 < 200 mg/dL LDL Cholesterol 129 H < 100 mg/dL HDL Cholesterol 28 L 40-59 mg/dL White Blood Count 12.4 H 4.4-10.8 10^3/uL Red Blood Count 5.76 4.5-5.90 10^6/uL Hemoglobin 17.0 13.5-17.5 g/dL Hematocrit 47.4 # 41.0-53.0 % Mean Corpuscular Volume 82.2 80.0-100.0 fL Mean Corpuscular Hemoglobin 29.4 28.0-32.0 pg Mean Corpuscular Hemoglobin Concent 35.8 32.0-36.0 g/dL Red Cell Distribution Width 12.9 11.8-14.3 % Platelet Count 228 140-450 10^3/uL Mean Platelet Volume 8.4 6.9-10.8 fL Neutrophils (%) (Auto) 70.6 37.0-80.0 % Lymphocytes (%) (Auto) 18.4 10.0-50.0 % Monocytes (%) (Auto) 6.9 0.0-12.0 % Eosinophils (%) (Auto) 3.7 0.0-7.0 % Basophils (%) (Auto) 0.4 0.0-2.0 % Neutrophils # (Auto) 8.7 H 1.6-8.6 10 ^3/uL Lymphocytes # (Auto) 2.3 0.4-5.4 10 ^3/uL Monocytes # (Auto) 0.8 0-1.3 10 ^3/uL Eosinophils # (Auto) 0.5 0-0.8 10 ^3/uL Basophils # (Auto) 0.1 0-0.2 10 ^3/uL Nucleated Red Blood Cells 0.0 % Sodium Level 136 136-145 mmol/L Potassium Level 3.2 L 3.5-5.1 mmol/L Chloride Level 100 98-107 mmol/L Carbon Dioxide Level 26 20-31 mmol/L Anion Gap 10 5-15 Blood Urea Nitrogen 15 9-23 mg/dL Creatinine 1.03 0.700-1.30 mg/dL Glomerular Filtration Rate Calc 94 >90 mL/min BUN/Creatinine Ratio 14.6 10.0-20.0 Serum Glucose 276 H 74-106 mg/dL Calcium Level 9.3 8.7-10.4 mg/dL Total Bilirubin 1.0 0.2-1.0 mg/dL Aspartate Amino Transferase (AST) 17 13-40 U/L Alanine Aminotransferase (ALT) 32 7-40 U/L Alkaline Phosphatase 117 H 46-116 U/L Total Protein 6.8 5.7-8.2 g/dL Albumin 4.3 3.2-4.8 g/dL SARS-CoV-2 Antigen (Rapid) Negative NEGATIVE Troponin I High Sensitivity 9 </=54 ng/L Test 12/13/24 16:42 Range/Units Hemoglobin A1c 11.1 H <5.7 % A1C B-Type Natriuretic Peptide 15.00 0-100 pg/mL Assessment Acute CVA rule out cardioembolic source Hypertensive emergency Dyslipidemia, newly diagnosed Uncontrolled diabetes mellitus, newly diagnosed, HgbA1C 11.1% Morbid obesity Plan/Recommendation (Dr. Campbell) Scheduled for a transesophageal echocardiogram with bubble study with Dr. Campbell for 12/19/2024. All risks and benefits of the procedure were discussed with the patient who agrees to proceed with intervention. All questions answered. In the meantime, continue antiplatelet therapy per neurological recommendations. C ontinue lipid lowering agent given newly diagnosed dyslipidemia. Initiate tight glycemic control given newly diagnosed diabetes mellitus. In the setting of an unremarkable DALE continue with an outpatient event monitor to rule out cardiac arrhythmias with no further inpatient work-up. Thank you for allowing us to participate in this patient's care. Please call if you have any questions or concerns. This medical document was created using an electronic medical record system with voice recognition software and computerized dictation system. Although this document has been carefully reviewed, there might still be some phonetic and typographical errors. Occasional wrong-word or ``sound-alike substitutions may have occurred due to the inherent limitations of voice recognition software. These areas are purely typographical due to imperfections of the software programs and do not reflect any compromise in the patient's medical care. Please read the chart carefully and recognize, using context, where these substitutions have occurred. Plan discussed with: Patient, Other (Father, mother, sister) NYHA Physical activity limitations: NA Date of Service: Dec 18, 2024 Billing Provider: PAVEL RIVERA Cardiology Common Codes: 10847-UBOLLPM INP/OBS CARE (High) PAVEL RIVERA Dec 18, 2024 13:27
[2024-12-18] MEDS ORDERED: DEXTROSE (50%) 50ML SYRG IV PRN (13:30)
[2024-12-18] MEDS: ACCU-CHEK COMFORT CURVE STRIP VI SCH (17:00)
[2024-12-18] MEDS: InsuLIN REG 1unit/0.01ml Soln (100units/ml) SC SCH ×2 (17:00→21:52)
--- NOTE | 2024-12-18 17:06 | DVHPN2 ---
Subjective Patient currently tolerating diet. He has left upper extremity stent has been improving Reviewed: Care Plan Changes from previous H/P or p: No Changes Eyes: No Pain, No Vision change, No Conjunctivae inflammation, No Eyelid inflammation, No Other, No Redness ENT: No Ear pain, No Ear discharge, No Nose pain, No Nose discharge, No Nose congestion, No Mouth pain, No Mouth swelling, No Throat pain, No Throat swelling, No Other Cardiovascular: No Chest Pain, No Palpitations, No Orthopnea, No Paroxysmal Noc. Dyspnea, No Edema, No Lt Headedness, No Other Respiratory: No Cough, No Dry, No Shortness of breath, No SOB with excertion, No Wheezing, No Hemoptysis, No Pleuritic Pain, No Sputum, No Other Gastrointestinal: No Nausea, No Vomiting, No Abdominal Pain, No Diarrhea, No Constipation, No Melena, No Hematochezia, No Other Genitourinary: No Dysuria, No Frequency, No Incontinence, No Hematuria, No Retention, No Other Musculoskeletal: No other, No neck pain, No shoulder pain, No arm pain, No back pain, No hand pain, No leg pain, No foot pain Objective Vitals Vital Signs Date Time Temp Pulse Resp B/P (MAP) Pulse Ox O2 Delivery O2 Flow Rate FiO2 12/18/24 16:39 98.9 81 16 145/93 (110) 96 98.9 12/18/24 08:10 Room Air* 0 21 Intake/Output Intake and Output 12/18/24 07:00 Intake Total 1635 ml Output Total 700 ml Balance 935 ml Intake Oral 1635 ml Output Urine Total 700 ml Exam HEENT pupils are reactive that has a left facial droop Neck is supple CV is S1-S2 regular rate and rhythm Respiratory viral clear GI posterior bowel sound Extremity no edema PR[employer] 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 motor strength left upper extremity three/5 left lower extremity about 3/5 right upper extremity right lower extremities 5/5 Medications Current Medications Medications Dose Ordered Sig/Javier Route Start Time Stop Time Status Last Admin Dose Admin Atorvastatin Calcium 20 mg HS PO 12/14/24 22:00 12/17/24 22:29 20 MG Sodium Chloride 1,000 ml @ 60 mls/hr [id number] IV 12/13/24 22:45 12/15/24 08:31 60 MLS/HR Acetaminophen/ Hydrocodone Bitart 1 tab Q4HP PRN PO 12/13/24 22:45 Ondansetron HCl 4 mg Q4HP PRN IV 12/13/24 22:45 Docusate Sodium 100 mg BIDPRN PRN PO 12/13/24 22:45 Acetaminophen 650 mg Q6HP PRN PO 12/13/24 22:45 Morphine Sulfate 2 mg Q4HPRN PRN IV 12/13/24 22:45 Nitroglycerin 0.4 mg Q5MINP PRN SL 12/13/24 22:45 Morphine Sulfate 2 mg Q30M PRN IV 12/13/24 22:45 Hydralazine HCl 10 mg Q4HP PRN IV 12/16/24 08:15 12/18/24 06:47 10 MG Insulin Glargine 20 units HS SC 12/16/24 22:00 12/17/24 22:27 20 UNITS Aspirin 81 mg DAILY PO 12/17/24 10:00 12/18/24 08:42 81 MG Alprazolam 0.5 mg TID PRN PO 12/16/24 16:00 12/18/24 16:44 0.5 MG Clopidogrel Bisulfate 75 mg DAILY PO 12/17/24 22:15 01/03/25 23:00 12/18/24 08:42 75 MG Diagnostic Test (Pha) 1 strip ACHS 12/18/24 17:00 Insulin Human Regular HS SC 12/18/24 22:00 Insulin Human Regular AC SC 12/18/24 17:00 Dextrose 50 ml UD PRN IV 12/18/24 13:30 Laboratory Results Laboratory Tests 12/14/24 06:59 Lipid panel Test 12/17/24 22:39 Cholesterol Level 176 mg/dL (< 200) HDL Cholesterol 28 mg/dL (40-59) L Triglycerides Level 128 mg/dL (< 150) Assessment/Plan Assessment/Plan 43-year-old male with a known history of diabetes type 2, hypertension who initially has been in the hospital with a left upper extremity left lower extremity weakness since 1:00 p.m. and left facial droop found to have 1. Left upper extremity/lower extremity weakness along with a left facial droop ruled in acute CVA 2. Suspected previous history of CVA 3. Diabetes mellitus type 2 4. Hypertension -MRI brain did show acute infarct in the right basal ganglia and medulla with cluster of foci subcentimeter, continue aspirin Plavix and statin if tolerates by mouth. -physical therapy evaluation ,occupational therapy evaluation, swallow evaluation and speech therapy. -patient insurance does not cover [facility] facility arrangement, we will arrange home health home safety home PT OT, shower chair as well as front wheel walker -patient being scheduled for DALE by Cardiology tomorrow. Plan discussed with: Patient Date of Service: Dec 18, 2024 Billing Provider: PAULA BANKS MD Common Visit Codes: [id number] INP/OBS CARE(MOD) PAULA BANKS MD Dec 18, 2024 17:06
[2024-12-19] VITALS (15 sets, daily range): BP systolic 133–174; BP diastolic 74–106; PULSE 79–99; RESP 11–20; TEMP 97.7–98.7; O2SAT 94–99
[2024-12-19 05:38] LABS: Basophils # (auto) 0 10 ^3/uL (0-0.2); Basophils % (auto) 0.5 % (0.0-2.0); Eosinophils % (auto) 11.3 % (0.0-7.0); Hematocrit 45.7 % (41.0-53.0); Hemoglobin 16.2 g/dL (13.5-17.5); Lymphocytes # (auto) 2.3 10 ^3/uL (0.4-5.4); Lymphocytes % (auto) 25.7 % (10.0-50.0); Mean Corpuscular Hemoglobin 29.8 pg (28.0-32.0); Mean Corpuscular Hgb Conc. 35.5 g/dL (32.0-36.0); Mean Corpuscular Volume 83.9 fL (80.0-100.0); Monocytes # (auto) 0.5 10 ^3/uL (0-1.3); Monocytes % (auto) 6.1 % (0.0-12.0); Neutrophils % (auto) 56.4 % (37.0-80.0); Platelet Count (auto) 190 10^3/uL (140-450); Red Blood Cells 5.44 10^6/uL (4.5-5.90); Red Cell Distribution Width 13.1 % (11.8-14.3); White Blood Cell 8.8 10^3/uL (4.4-10.8)
[2024-12-19 05:44] LABS: Anion Gap 8 (5-15); Carbon Dioxide 26 mmol/L (20-31); Sodium 141 mmol/L (136-145)
[2024-12-19 05:45] LABS: Calcium 9.1 mg/dL (8.7-10.4)
[2024-12-19 05:48] LABS: Chloride 107 mmol/L (98-107); Potassium 3.4 mmol/L (3.5-5.1)
[2024-12-19 05:50] LABS: BUN/Creatinine Ratio 18.8 (10.0-20.0); Blood Urea Nitrogen 19 mg/dL (9-23)
[2024-12-19 05:52] LABS: INR 1.06 (0.9-1.15); Prothrombin Time 11.2 sec (9.3-11.8)
[2024-12-19 05:53] LABS: Glucose 142 mg/dL (74-106)
[2024-12-19 06:01] LABS: Urine Bacteria None Seen /hpf (None Seen)
[2024-12-19 06:10] LABS: Urine Blood Negative /uL (Negative); Urine Clarity Clear (Clear); Urine Color Yellow (Yellow); Urine Mucus FEW (None Seen); Urine Protein, UAD 2+ (Negative); Urine Specific Gravity 1.025 (1.001-1.035); Urine Squamous Epithelial Cell FEW /hpf (<5); Urine Urobilinogen 2 mg/dL (Negative); Urine WBC < 1 /HPF (0-3)
[2024-12-19 06:22] LABS: Amphetamine Screen, Urine Neg (NEGATIVE); Barbiturate Scree,Urine Neg (NEGATIVE); Benzodiazephine Screen, Urine Pos (NEGATIVE)
[2024-12-19 06:23] LABS: Cannabinoid Screen, Urine Neg (NEGATIVE); Cocaine Screen, Urine Neg (NEGATIVE); Opiate Scree,Urine Neg (NEGATIVE); Phencyclidine Screen, Urine Neg (NEGATIVE)
[2024-12-19] MEDS: LIDOCAINE VISCOUS 2% 15ML UD ONE (09:16)
[2024-12-19] MEDS: fentaNYL CITRATE 100 MCG/2 ML VL ONE (09:16)
[2024-12-19] MEDS: fentaNYL CITRATE 100 MCG/2 ML VL IV ONE (09:16)
[2024-12-19] MEDS: MIDAZOLAM HCL 2MG/2ML 2ml VIAL (1mg/ml) ONE (09:16)
[2024-12-19] MEDS: MIDAZOLAM HCL 2MG/2ML 2ml VIAL (1mg/ml) IV ONE (09:17)
[2024-12-19] MEDS: LIDOCAINE VISCOUS 2% 15ML UD PO ONE (09:17)
--- NOTE | 2024-12-19 11:41 | DVHPN2 ---
Reviewed: Care Plan Eyes: No Pain, No Vision change, No Conjunctivae inflammation, No Eyelid inflammation, No Other, No Redness ENT: No Ear pain, No Ear discharge, No Nose pain, No Nose discharge, No Nose congestion, No Mouth pain, No Mouth swelling, No Throat pain, No Throat swelling, No Other Cardiovascular: No Chest Pain, No Palpitations, No Orthopnea, No Paroxysmal Noc. Dyspnea, No Edema, No Lt Headedness, No Other Respiratory: No Cough, No Dry, No Shortness of breath, No SOB with excertion, No Wheezing, No Hemoptysis, No Pleuritic Pain, No Sputum, No Other Gastrointestinal: No Nausea, No Vomiting, No Abdominal Pain, No Diarrhea, No Constipation, No Melena, No Hematochezia, No Other Genitourinary: No Dysuria, No Frequency, No Incontinence, No Hematuria, No Retention, No Other Musculoskeletal: No other, No neck pain, No shoulder pain, No arm pain, No back pain, No hand pain, No leg pain, No foot pain Objective Vitals Vital Signs Date Time Temp Pulse Resp B/P (MAP) Pulse Ox O2 Delivery O2 Flow Rate FiO2 12/19/24 09:39 80 18 148/91 (110) 95 12/19/24 09:00 98.2 98.2 12/18/24 20:00 Room Air* 0 21 Intake/Output Intake and Output 12/19/24 07:00 Intake Total 500 ml Output Total 600 ml Balance -100 ml Intake Oral 440 ml IV Total 60 ml Output Urine Total 600 ml Medications Current Medications Medications Dose Ordered Sig/Javier Route Start Time Stop Time Status Last Admin Dose Admin Atorvastatin Calcium 20 mg HS PO 12/14/24 22:00 12/18/24 21:51 20 MG Sodium Chloride 1,000 ml @ 60 mls/hr [id number] IV 12/13/24 22:45 12/15/24 08:31 60 MLS/HR Acetaminophen/ Hydrocodone Bitart 1 tab Q4HP PRN PO 12/13/24 22:45 Ondansetron HCl 4 mg Q4HP PRN IV 12/13/24 22:45 Docusate Sodium 100 mg BIDPRN PRN PO 12/13/24 22:45 Acetaminophen 650 mg Q6HP PRN PO 12/13/24 22:45 Morphine Sulfate 2 mg Q4HPRN PRN IV 12/13/24 22:45 Nitroglycerin 0.4 mg Q5MINP PRN SL 12/13/24 22:45 Morphine Sulfate 2 mg Q30M PRN IV 12/13/24 22:45 Hydralazine HCl 10 mg Q4HP PRN IV 12/16/24 08:15 12/18/24 20:20 10 MG Insulin Glargine 20 units HS SC 12/16/24 22:00 12/18/24 21:53 20 UNITS Aspirin 81 mg DAILY PO 12/17/24 10:00 12/18/24 08:42 81 MG Alprazolam 0.5 mg TID PRN PO 12/16/24 16:00 12/18/24 16:44 0.5 MG Clopidogrel Bisulfate 75 mg DAILY PO 12/17/24 22:15 01/03/25 23:00 12/18/24 08:42 75 MG Diagnostic Test (Pha) 1 strip ACHS 12/18/24 17:00 12/19/24 06:16 1 STRIP Insulin Human Regular HS SC 12/18/24 22:00 12/18/24 21:52 2 UNITS Insulin Human Regular AC SC 12/18/24 17:00 12/18/24 17:00 2 UNITS Dextrose 50 ml UD PRN IV 12/18/24 13:30 Laboratory Results Laboratory Tests 12/19/24 05:10 Chemistry Test 12/19/24 05:10 Calcium Level 9.1 mg/dL (8.7-10.4) Coagulation Test 12/19/24 05:10 Prothrombin Time 11.2 sec (9.3-11.8) Prothrombin Time INR 1.06 (0.9-1.15) Activated Partial Thromboplast Time 28.0 SEC (24.5-34.5) Urinalysis Test 12/19/24 06:00 Urine Color Yellow (Yellow) Urine Clarity Clear (Clear) Urine pH 6.0 (5.0-9.0) Urine Specific [place] 1.025 (1.001-1.035) Urine Protein 2+ (Negative) H Urine Ketones Trace (Negative) Urine Blood Negative /uL (Negative) Urine Nitrite Negative (Negative) Urine Bilirubin Negative (Negative) Urine Urobilinogen 2 mg/dL (Negative) H Urine Leukocyte Esterase Negative /uL (Negative) Urine RBC 1 /hpf (0 - 3) Urine Microscopic WBC < 1 /HPF (0-3) Urine Squamous Epithelial Cells Few /hpf (<5) Urine Bacteria None seen /hpf (None Seen) Urine Mucus Few (None Seen) Urine Glucose Trace mg/dL (Normal) DONALD PALACIOS MD Dec 19, 2024 11:41
[2024-12-19] MEDS ORDERED: CLOP75TA70 PO (11:45)
[2024-12-19] MEDS ORDERED: ASPI-325 PO (11:45)
[2024-12-19] MEDS ORDERED: METF-370 PO (11:45)
[2024-12-19] MEDS ORDERED: ATOR20TA50 PO (11:45)
--- NOTE | 2024-12-19 11:46 | DVHDS2 ---
Discharge Summary Date of Admission Dec 13, 2024 at 22:35 Date of Discharge: Dec 19, 2024 Admitting Diagnosis 1. Left upper extremity/lower extremity weakness along with a left facial droop ruled in acute CVA 2. Suspected previous history of CVA 3. Diabetes mellitus type 2 4. Hypertension Labs/Diagnostic Data: Laboratory Results Test 12/19/24 06:13 12/19/24 06:00 12/19/24 05:10 12/17/24 22:39 POC Glucose 139 mg/dl (70-106) Urine Color Yellow (Yellow) Urine Clarity Clear (Clear) Urine pH 6.0 (5.0-9.0) Urine Specific [place] 1.025 (1.001-1.035) Urine Protein 2+ (Negative) Urine Ketones Trace (Negative) Urine Blood Negative /uL (Negative) Urine Nitrite Negative (Negative) Urine Bilirubin Negative (Negative) Urine Urobilinogen 2 mg/dL (Negative) Urine Leukocyte Esterase Negative /uL (Negative) Urine RBC 1 /hpf (0 - 3) Urine Microscopic WBC < 1 /HPF (0-3) Urine Squamous Epithelial Cells Few /hpf (<5) Urine Bacteria None seen /hpf (None Seen) Urine Mucus Few (None Seen) Urine Glucose Trace mg/dL (Normal) Urine Opiates Screen Neg (NEGATIVE) Urine Fentanyl Screen Neg (NEGATIVE) Urine Barbiturates Screen Neg (NEGATIVE) Urine Phencyclidine Screen Neg (NEGATIVE) Urine Amphetamines Screen Neg (NEGATIVE) Urine Benzodiazepines Screen Pos (NEGATIVE) Urine Cocaine Screen Neg (NEGATIVE) Urine Cannabinoids Screen Neg (NEGATIVE) White Blood Count 8.8 10^3/uL (4.4-10.8) Red Blood Count 5.44 10^6/uL (4.5-5.90) Hemoglobin 16.2 g/dL (13.5-17.5) Hematocrit 45.7 % (41.0-53.0) Mean Corpuscular Volume 83.9 fL (80.0-100.0) Mean Corpuscular Hemoglobin 29.8 pg (28.0-32.0) Mean Corpuscular Hemoglobin Concent 35.5 g/dL (32.0-36.0) Red Cell Distribution Width 13.1 % (11.8-14.3) Platelet Count 190 10^3/uL (140-450) Mean Platelet Volume 8.2 fL (6.9-10.8) Neutrophils (%) (Auto) 56.4 % (37.0-80.0) Lymphocytes (%) (Auto) 25.7 % (10.0-50.0) Monocytes (%) (Auto) 6.1 % (0.0-12.0) Eosinophils (%) (Auto) 11.3 % (0.0-7.0) Basophils (%) (Auto) 0.5 % (0.0-2.0) Neutrophils # (Auto) 5.0 10 ^3/uL (1.6-8.6) Lymphocytes # (Auto) 2.3 10 ^3/uL (0.4-5.4) Monocytes # (Auto) 0.5 10 ^3/uL (0-1.3) Eosinophils # (Auto) 1.0 10 ^3/uL (0-0.8) Basophils # (Auto) 0 10 ^3/uL (0-0.2) Nucleated Red Blood Cells 0.0 % Prothrombin Time 11.2 sec (9.3-11.8) Prothrombin Time INR 1.06 (0.9-1.15) Activated Partial Thromboplast Time 28.0 SEC (24.5-34.5) Sodium Level 141 mmol/L (136-145) Potassium Level 3.4 mmol/L (3.5-5.1) Chloride Level 107 mmol/L (98-107) Carbon Dioxide Level 26 mmol/L (20-31) Anion Gap 8 (5-15) Blood Urea Nitrogen 19 mg/dL (9-23) Creatinine 1.01 mg/dL (0.700-1.30) Glomerular Filtration Rate Calc 96 mL/min (>90) BUN/Creatinine Ratio 18.8 (10.0-20.0) Serum Glucose 142 mg/dL (74-106) Calcium Level 9.1 mg/dL (8.7-10.4) Triglycerides Level 128 mg/dL (< 150) Cholesterol Level 176 mg/dL (< 200) LDL Cholesterol 129 mg/dL (< 100) HDL Cholesterol 28 mg/dL (40-59) Test 12/14/24 06:59 12/13/24 20:04 12/13/24 16:42 Total Bilirubin 1.0 mg/dL (0.2-1.0) Aspartate Amino Transferase (AST) 17 U/L (13-40) Alanine Aminotransferase (ALT) 32 U/L (7-40) Alkaline Phosphatase 117 U/L (46-116) Total Protein 6.8 g/dL (5.7-8.2) Albumin 4.3 g/dL (3.2-4.8) SARS-CoV-2 Antigen (Rapid) Negative (NEGATIVE) Troponin I High Sensitivity 9 ng/L (</=54) Hemoglobin A1c 11.1 % A1C (<5.7) B-Type Natriuretic Peptide 15.00 pg/mL (0-100) Other Laboratory Tests 12/19/24 05:10 Brief Hx & Hospital Course: This is a 43 years old male with past medical history hypertension, diabetes, come to emergency department because of dizziness and progressive left-sided weakness with slurred speech. The patient was admitted. The patient CT scan of the head showed small 9 mm hypo attenuating focus is seen in the left anterior centrum semi ovale which may reflect intermittent age infarct. Subsequently the patient has an MRI done which showed: No acute intracranial process identified. Foci of old microbleeds in the bilateral basal ganglia and lo that may reflect chronic hypertensive encephalopathy or prior trauma. Recommend clinical and biochemical correlation. The patient also was found to have blood pressure of 247/113. The patient received hydralazine IV p.r.n.. His blood pressure is slowly trending down to 140/90 range. Heart rate also slowed down. The patient 1st heart rate was 128. The patient has a DALE done which showed no embolic source. Transesophageal echo showed:Technically good study. Sinus rhythm. Concentric LVH. Mild left atrial enlargement. Valves are normal. The tricuspid and pulmonic normal. The mitral and aortic are normal. Left ventricular systolic function is preserved. EF is 60% with normal RV function. Doppler reveals mild TR. No significant mitral or tricuspid insufficiency. No pulmonic or aortic insufficiency. Bubble study performed showing no crossover from right to left. No intracardiac masses thrombi or vegetations. The left atrial appendage is clean. The intra-atrial septum is intact without ASD or VSD is noted. No pericardial effusion. Transgastric views were normal. The patient subsequently was started on Plavix and aspirin. The patient had physical therapy in the hospital. The patient had great family support so the patient will be discharged home with PT. The patient will have a front wheel walker and also bedside commode at home. Patient will be discharged home today. Advised the patient to follow up at follow up clinic per schedule. Medication will be written for him for outpatient including hypertensive medication, statin, Plavix and aspirin. Advised the patient to change his lifestyle. Advised the patient to follow up with primary care physician per schedule and compliant with his medical treatment. Physical exam: HEENT: Normocephalic atraumatic pupils equal react to light and accommodation. Extraocular muscles intact, conjunctiva pink, oropharynx moist, no thrush, no exudate. Lymphatic: No lymphadenopathy Cardiovascular exam: S1, S2 was heard. No murmurs, rubs, gallops Lung: Clear on auscultation bilaterally, no wheeze, rale, rhonchi. GI: Abdominal soft, nondistended, nontenderness, positive bowel sounds. Extremity: No crepitus, cyanosis, edema. Pedal pulses present bilateral. Full range of motion. Skin: Normal turgor, no rash. Psych: Alert, oriented x3. Neurology: Left-sided weakness due to CVA This medical document was created using an electronic medical record system with [employer] direct computerized dictation system. Although this document has been carefully reviewed, there may still be some phonetic and typographical errors. These areas are purely typographical due to imperfections of the software programs, and do not reflect any compromise in the patient's medical care. Condition at Discharge: Stable Final Diagnosis/Problems List 1. Left upper extremity/lower extremity weakness along with a left facial droop ruled in acute CVA, MRI brain did show acute infarct in the right basal ganglia and medulla with cluster of foci subcentimeter 2. Suspected previous history of CVA 3. Diabetes mellitus type 2 4. Hypertension Discharge Disposition: Home Discharge Instruct/Medications Diet: Cardiac 2g Na,low cholest Activity: No Restrictions, As Tolerated Follow Up/Referral: pcp 1-2 weeks Medications: see meds list Discharge Statement: "Patient was advised to return to the ER or call 911 if any headaches, dizziness, shortness of breath, chest pain, abdominal pain, bleeding, fevers, or worsening of medical condition. Patient was counseled about treatment plan, medications, possible side effects, patientverbalized understanding. All questions were answered to the best of my ability. This discharge took greater then 30 minutes in planning, reviewing documentation, counseling the patient, and discussing with other team members." ASSESSMENT ASSESSMENT Assessment CVA Date of Service: Dec 19, 2024 Billing Provider: DONALD PALACIOS MD Common Visit Codes: 12539-BOI/OBS DISCH DAY >30min DONALD PALACIOS MD Dec 19, 2024 11:46
[2024-12-19] MEDS ORDERED: AMLO1TAB23 PO (11:47)
--- NOTE | 2024-12-19 12:21 | DVHOP2 ---
Operative Report - 2 Report Details Date: 12/19/24 Preop Diagnosis: CVA Postop Diagnosis: CVANo significant echocardiographic abnormalities. Surgeon: Amber Campbell MD Anesthesiologist: Conscious sedation Anesthesia: Mac Consent: The patient was informed of the risks and benefits of the procedure. These include but are not limited to complications of anesthesia, postoperative infection, incomplete relief of symptoms, recurrence of symptoms, damage to blood vessels, nerves and tendons, deep venous thrombosis, pulmonary embolism and possible need for repeat surgery in the future. Complications: No complications Findings: Normal transesophageal echocardiogram Indications for Surgery: CVA Name of Procedure Performed Transesophageal echocardiogram Procedure Details Procedure Details: Prior full informed consent obtained. The patient was given viscous lidocaine to gargle. A standard probe was passed after the patient was placed in left lateral decubitus position and conscious sedation given by ut. Standard views were obtained. Conclusions 1. Technically good study. Sinus rhythm. Concentric LVH. Mild left atrial enlargement. Valves are normal. The tricuspid and pulmonic normal. The mitral and aortic are normal. Left ventricular systolic function is preserved. EF is 60% with normal RV function. Doppler reveals mild TR. No significant mitral or tricuspid insufficiency. No pulmonic or aortic insufficiency. Bubble study performed showing no crossover from right to left. No intracardiac masses thrombi or vegetations. The left atrial appendage is clean. The intra-atrial septum is intact without ASD or VSD is noted. No pericardial effusion. Transgastric views were normal. Disposition Home Date of Service: Dec 19, 2024 Billing Provider: AMBRE CAMPBELL Sr., MD Cardiology Common Codes: 61506-AITDRID INP/OBS CARE (High) Cardiology Procedure Codes: 96903-YTC W/IMG DOC INCL PROB ACQ AMBER CAMPBELL Sr., MD Dec 19, 2024 12:21
== END 2024-12-19 17:15 | disposition home or self-care (01) | DRG 45 ==
LOC: ER 16:18 → OVERFLOW 22:35 → TELE-EAST 22:44 → EAST 12-17 03:13 → TELE-EAST 12-17 05:28
PROVIDERS: ADMIT Internal Medicine; ATTEND Internal Medicine
PROC: B245ZZ4 Ultrasonography of Left Heart, Transesophageal (ICD-10-PCS; principal; 2024-12-19)
DX: I63.9 Cerebral infarction, unspecified (principal); J96.00 Acute respiratory failure, unspecified whether with hypoxia or hypercapnia; G93.41 Metabolic encephalopathy; G81.94 Hemiplegia, unspecified affecting left nondominant side; D72.829 Elevated white blood cell count, unspecified; E11.65 Type 2 diabetes mellitus with hyperglycemia; E66.01 Morbid (severe) obesity due to excess calories; E78.5 Hyperlipidemia, unspecified; I10 Essential (primary) hypertension; I77.1 Stricture of artery; Z20.822 Contact with and (suspected) exposure to COVID-19; R29.810 Facial weakness; R29.705 NIHSS score 5; I16.1 Hypertensive emergency; R47.1 Dysarthria and anarthria; Z83.3 Family history of diabetes mellitus; Z79.82 Long term (current) use of aspirin; Z79.02 Long term (current) use of antithrombotics/antiplatelets; Z79.899 Other long term (current) drug therapy; Z86.73 Personal history of transient ischemic attack (TIA), and cerebral infarction without residual deficits; Z68.38 Body mass index [BMI] 38.0-38.9, adult
CPT/HCPCS: 36415; 70450; 70496; 70498; 70551; 71045; 80048; 80053; 80061; 80307; 81001; 82962; 83036; 83880; 84484; 85025; 85610; 85730; 86850; 86900; 86901; 87426; 92507; 92610; 93005; 93306; 93312; 97110; 97116; 97163; 97530; 99152; 99291; G0378; J1815; J2250

== ENCOUNTER 2025-04-23 13:34 | Inpatient (IN) | payer MEDICAID ==
[~2025-04-23] VITALS: Ht 167.6 cm; Wt 98.6 kg
[~2025-04-23 13:34] MED LIST: AMLO1TAB23 PO; ASPI-325 PO; ATOR20TA50 PO; CLOP75TA70 PO; METF-370 PO
--- NOTE | 2025-04-23 14:05 | ED.PDOC ---
History of Present Illness HPI Comments This is a 44 year old male presenting to the ED with chief complaint of hypertension. Patient reports that he saw his PCP this afternoon and was found to have a BP of 233/115. Patient relays that he was advised to come to the ED for further evaluation. Patient noted to have a BP of 179/122 in triage. Patient denies any chest pain, SOB, dizziness, N/V, headache, or blurred vision. Chief Complaint: High Blood Pressure Time Seen by MD: 14:04 Reviewed Notes: Nurses Notes, Medications, Allergies Allergies: Coded Allergies: NO KNOWN ALLERGIES (Unverified , 12/13/24) Home Meds Active Scripts Amlodipine Besylate (Amlodipine Besylate) 10 Mg Tab, 1 TAB PO DAILY, #30 TAB 5 Refills Prov:DONALD PALACIOS MD 12/19/24 Metformin Hydrochloride (Metformin Hcl) 500 Mg Tab, 1 TAB PO BID, #180 TAB 3 Refills Prov:DONALD PALACIOS MD 12/19/24 Clopidogrel Bisulfate (CLOPIDOGREL) 75 Mg Tab, 75 MG PO DAILY, #30 TAB 0 Refills Prov:DONALD PALACIOS MD 12/19/24 Atorvastatin Calcium (ATORVASTATIN CALCIUM) 20 Mg Tab, 20 MG PO HS, #90 TAB 5 Refills Prov:DONALD PALACIOS MD 12/19/24 Aspirin (Aspirin Low Dose) 81 Mg Tab, 81 MG PO DAILY, #90 TAB 5 Refills Prov:DONALD PALACIOS MD 12/19/24 Information Source: Patient Mode of Arrival: Ambulatory Severity: Moderate Timing: Hours Duration: Since onset Prehospital treatment: None Medication Refill: For: Hypertension Past Medical History PAST MEDICAL HISTORY: DM, HTN Surgical History: Denies all surgeries Family History Family History: Reviewed,noncontributory to illness Social History Smoker: Non-Smoker Alcohol: Denies ETOH Use Drugs: Denies Drug Use Lives In: Home Constitutional: denies: chills, diaphoresis, fatigue, fever, malaise, sweats, weakness, others EENTM: denies: blurred vision, double vision, ear bleeding, ear discharge, ear drainage, ear pain, ear ringing, eye pain, eye redness, hearing loss, mouth pain, mouth swelling, nasal discharge, nose bleeding, nose congestion, nose pain, photophobia, tearing, throat pain, throat swelling, voice changes, others Respiratory: denies: cough, hemoptysis, orthopnea, SOB at rest, shortness of breath, SOB with excertion, stridor, wheezing, others Cardiovascular: denies: chest pain, dizzy spells, diaphoresis, Dyspnea on exertion, edema, irregular heart beat, left arm pain, lightheadedness, palpitations, PND, syncope, others Gastrointestinal: denies: abdomen distended, abdominal pain, blood streaked bowels, constipated, diarrhea, dysphagia, difficulty swallowing, hematemesis, melena, nausea, poor appetite, poor fluid intake, rectal bleeding, rectal pain, vomiting, others Genitourinary: denies: burning, dysuria, flank pain, frequency, hematuria, incontinence, penile discharge, penile sore, pain, testicle pain, testicle swelling, urgency, others Neurological: denies: dizziness, fainting, headache, left sided numbness, left sided weakness, numbness, paresthesia, pre-existing deficit, right sided numbness, right sided weakness, seizure, speech problems, tingling, tremors, weakness, others Musculoskeletal: denies: back pain, gout, joint pain, joint swelling, muscle pain, muscle stiffness, neck pain, others Integumetry: denies: bruises, change in color, change in hair/nails, dryness, laceration, lesions, lumps, rash, wounds, others Allergic/Immunocompromised: denies: Difficulty Healing, Frequent Infections, Hives, Itching, others Hematologic/Lymphatic: denies: anemia, blood clots, easy bleeding, easy bruising, swollen glands, others Endocrine: denies: excessive hunger, excessive sweating, excessive thirst, excessive urination, flushing, intolerance to cold, intolerance to heat, unexplained weight gain, unexplained weight loss, others Psychiatric: denies: anxiety, bipolar disorder, depression, hopeless, panic disorder, schizophrenia, sleepless, suicidal, others All Other Systems: Reviewed and Negative Physical Exam General Appearance: Moderate Distress, Normal HEENT: Normal ENT Inspection, Pharynx Normal, TMs Normal Neck: Full Range of Motion, Non-Tender, Normal, Normal Inspection Respiratory: Chest Non-Tender, Lungs Clear, No Accessory Muscle Use, No Respiratory Distress, Normal Breath Sounds Cardiovascular: No Edema, No JVD, No Murmur, No Gallop, Normal Peripheral Pu lses, Regular Rate/Rhythm Breast Exam: Deferred Gastrointestinal: No Organomegaly, Non Tender, No Pulsatile Mass, Normal Bowel Sounds, Soft Genitalia: Deferred Pelvic: Deferred Rectal: Deferred Extremities: No calf tenderness, Normal capillary refill, Normal inspection, Normal range of motion, Non-tender, No pedal edema Musculoskeletal : Apperance: Normal Neurologic: Alert, header dock II-XII nml as Tested, No Motor Deficits, Normal Affect, Normal Mood, No Sensory Deficits Cerebellar Function: NOT DONE Reflexes: NOT DONE Skin: Dry, Normal Color, Warm Peripheral Pulses: 3+ Radial (R), 3+ Radial (L) Lymphatic: No Adenopathy Was a procedure done? Was a procedure done?: No EKG EKG : Pulse Rate (adult): 91 [place]: Normal Cardiac Rhythm: NSR Block: None Hypertrophy: None ST: Normal Differential Dx Considerations may include: Hyperglycemia Electrolyte imbalance X-Ray, Labs, Meds, VS Vital Signs Date Time Temp Pulse Resp B/P (MAP) Pulse Ox O2 Delivery O2 Flow Rate FiO2 04/23/25 16:28 97.9 91 17 211/132 (158) 97 97.9 04/23/25 14:16 104 18 95 Room Air 04/23/25 14:16 97.8 104 18 185/120 (141) 95 97.8 04/23/25 14:16 185/120 04/23/25 14:05 91 04/23/25 13:58 91 04/23/25 13:48 99.4 106 20 212/122 (152) 95 99.4 Lab Test 04/23/25 15:00 04/23/25 14:11 Range/Units Troponin I High Sensitivity 7 6 </=54 ng/L White Blood Count 8.9 4.4-10.8 10^3/uL Red Blood Count 5.71 4.5-5.90 10^6/uL Hemoglobin 16.7 13.5-17.5 g/dL Hematocrit 48.4 41.0-53.0 % Mean Corpuscular Volume 84.7 80.0-100.0 fL Mean Corpuscular Hemoglobin 29.3 28.0-32.0 pg Mean Corpuscular Hemoglobin Concent 34.5 32.0-36.0 g/dL Red Cell Distribution Width 13.5 11.8-14.3 % Platelet Count 218 140-450 10^3/uL Mean Platelet Volume 8.6 6.9-10.8 fL Neutrophils (%) (Auto) 60.7 37.0-80.0 % Lymphocytes (%) (Auto) 23.2 10.0-50.0 % Monocytes (%) (Auto) 5.3 0.0-12.0 % Eosinophils (%) (Auto) 10.2 H 0.0-7.0 % Basophils (%) (Auto) 0.6 0.0-2.0 % Neutrophils # (Auto) 5.4 1.6-8.6 10 ^3/uL Lymphocytes # (Auto) 2.1 0.4-5.4 10 ^3/uL Monocytes # (Auto) 0.5 0-1.3 10 ^3/uL Eosinophils # (Auto) 0.9 H 0-0.8 10 ^3/uL Basophils # (Auto) 0 0-0.2 10 ^3/uL Nucleated Red Blood Cells 0.0 % Sodium Level 142 136-145 mmol/L Potassium Level 4.0 3.5-5.1 mmol/L Chloride Level 105 98-107 mmol/L Carbon Dioxide Level 27 20-31 mmol/L Anion Gap 10 5-15 Blood Urea Nitrogen 19 9-23 mg/dL Creatinine 1.21 0.700-1.30 mg/dL Glomerular Filtration Rate Calc 77 >90 mL/min BUN/Creatinine Ratio 15.7 10.0-20.0 Serum Glucose 254 H 74-106 mg/dL Calcium Level 10.0 8.7-10.4 mg/dL Current Medications Medications (Trade) Dose Ordered Sig/Javier Route Start Time Stop Time Status Last Admin Amlodipine Besylate (Norvasc Tablet) 10 mg ONCE ONCE PO 04/23/25 14:00 04/23/25 14:01 DC 04/23/25 14:16 Patient alert. Came in because of high blood pressure. Was given Norvasc. Vitals stable. Denies any symptoms. WBC within normal limits. Blood pressure continues to be elevated. EKG done at outside facility does show changes. High-risk. Possibly need echocardiogram. Explained to the patient. Continue to monitor. Blood pressure continues to be high. Was started on nicardipine. Time of 1ST Reevaluation: 15:00 Reevaluation 1ST: Unchanged Patient Education/Counseling: Diagnosis, Treatment Family Education/Counseling: No Family Present Additional Information Previous visits reviewed: 12/13/24 for encephalopathy The following tests were ordered, and results were reviewed by me: CBC, BMP, Troponin, Chest XR Additional Information was gathered from interviewing the following independent historians: None I reviewed and agreed with the following test results read by other providers: Chest XR I discussed treatment and results with medical personnel and: patient Comprehensive systems review obtained and negative except for what is stated in the HPI. SEPSIS Sepsis Screen Date sepsis recognized/suspect: Apr 23, 2025 Time Sepsis recognized/suspect: 1348 Recent Procedure: No On Antibiotic Therapy: No Respiratory Rate >20: No Heart Rate >90: Yes Temp<36 C (96.8 F) or >38.3 C: No SBP <90 or MAP <65 mmHG: No New Acute Mental Status Change: No Is the patient on CPAP, BIPAP,: No Physician Orders Chest Portable (04/23/25 13:58) Troponin-I Hs (04/23/25 16:58) Electrocardigram (04/23/25 14:54) Admit (04/23/25 16:53) Nitroglycerin Sublingual (Ntrostat Subli (04/23/25 17:00) Morphine Sulfate Injection (04/23/25 17:00) Stat Ekg For Chest Pain (04/23/25 16:53) Notify Md Of Changes From Base (04/23/25 16:53) Manager Business For 24 Hours (04/23/25 16:53) Emergency Dysrhythmia Protocol (04/23/25 16:53) Rhythm Strips Once Every Shift (04/23/25 16:53) Oxygen By Nasal Cannula (04/23/25 16:53) Troponin-I Hs (04/23/25 16:54) Nicardipine (Cardene) Drip (04/23/25 17:00) Lisinopril Tablet (Zestril Tablet) (04/23/25 16:55) Vital Signs Date Time Temp Pulse Resp B/P (MAP) Pulse Ox O2 Delivery O2 Flow Rate FiO2 04/23/25 16:28 97.9 91 17 211/132 (158) 97 97.9 04/23/25 14:16 104 18 95 Room Air 04/23/25 14:16 97.8 104 18 185/120 (141) 95 97.8 04/23/25 14:16 185/120 04/23/25 14:05 91 04/23/25 13:58 91 04/23/25 13:48 99.4 106 20 212/122 (152) 95 99.4 Laboratory Tests Test 04/23/25 14:11 White Blood Count 8.9 10^3/uL (4.4-10.8) Medications Medications Dose Ordered Sig/Javier Route Start Time Stop Time Status Last Admin Dose Admin Amlodipine Besylate 10 mg ONCE ONCE PO 04/23/25 14:00 04/23/25 14:01 DC 04/23/25 14:16 Departure 1 Departure Time of Disposition: 14:54 Impression: Primary Impression: Hypertensive emergency Additional Impression: Diabetes mellitus with hyperglycemia Qualified Codes: E13.65 - Other specified diabetes mellitus with hyperglycemia Disposition: ADMITTED INPATIENT Admit to: Med Surg Condition: Guarded Critical Care Note Critical Care Time?: Yes (90 min-critical care time only) Critical care comment: Blood pressure elevated continue to monitor Stability Stability form required: No Heart Score Heart Score: Heart Score Response (Comments) Value History Highly Suspicious 2 EKG Normal 0 Age <45 0 Risk Factors >3 or Hx ASHD 2 Troponin Normal limit 0 Total 4 I personally scribed for STEPAN LEAVITT MD ([email or web address]) on 04/23/25 at 14:05. Electronically submitted by Juan M Mead [email or web address]). STEPAN LEAVITT MD Apr 23, 2025 14:05
--- NOTE | 2025-04-23 14:26 | DVH ---
EXAM: XY CHEST PORTABLE HISTORY: sob COMPARISON: XY CHEST PORTABLE on DOS: 12/13/24 TECHNIQUE: Portable upright AP view of the chest was performed. FINDINGS: No pneumothorax, consolidative infiltrates, or pulmonary edema. The heart is enlarged. IMPRESSION: Cardiomegaly without evidence of acute intrathoracic process.
[2025-04-23 14:34] LABS: Hematocrit 48.4 % (41.0-53.0); Hemoglobin 16.7 g/dL (13.5-17.5); Mean Corpuscular Hemoglobin 29.3 pg (28.0-32.0); Mean Corpuscular Volume 84.7 fL (80.0-100.0); Nucleated Red Blood Cells % 0.0 %
[2025-04-23 14:42] LABS: Anion Gap 10 (5-15); Carbon Dioxide 27 mmol/L (20-31); Chloride 105 mmol/L (98-107); Potassium 4.0 mmol/L (3.5-5.1); Sodium 142 mmol/L (136-145)
[2025-04-23 14:43] LABS: Calcium 10.0 mg/dL (8.7-10.4)
[2025-04-23 14:48] LABS: BUN/Creatinine Ratio 15.7 (10.0-20.0); Blood Urea Nitrogen 19 mg/dL (9-23)
[2025-04-23 14:49] LABS: Glucose 254 mg/dL (74-106)
[2025-04-23] MEDS: NICARDIPINE HCL IN SODIUM CHLO 200 ML IV SCH (17:00)
[2025-04-23] MEDS: LISINOPRIL 5 MG TAB PO ONE (17:02)
[2025-04-23] MEDS: MORPHINE SULFATE INJ 2 MG/ml SYRG IV PRN (17:18)
[2025-04-23] MEDS: NITROGLYCERIN 0.4 MG SL TAB SL PRN (17:20)
[2025-04-23] MEDS ORDERED: DEXTROSE (50%) 50ML SYRG IV PRN (17:30)
[2025-04-23] MEDS ORDERED: ONDANSETRON HCL 4 MG/2 ML VIAL IV PRN (17:30)
[2025-04-23] MEDS ORDERED: ACETAMINOPHEN 325 MG TAB PO PRN (17:30)
--- NOTE | 2025-04-23 17:36 | DVHHP2 ---
History of Present Illness Reason for Visit: High blood pressure History of Present Illness 44-year-old male presents for evaluation of high blood pressure. Patient was seen by his primary care provider today for a follow-up visit. Patient was noted to have a blood pressure greater than 200 and was advised to present to the emergency department for further evaluation. He denies headache, chest pain or shortness for breath. No dizziness. No other acute complaints. Past Medical History Hypertension, CVA and diabetes mellitus Past Surgical History Denies Family History Noncontributory Smoke: No ALCOHOL: none Drugs: None Lives: with Family Review of Systems Review of Systems Review of systems are currently negative otherwise dressing HPI. Allergies: Coded Allergies: NO KNOWN ALLERGIES (Unverified , 12/13/24) Medications Current Medications Medications Dose Ordered Sig/Javier Route Start Time Stop Time Status Last Admin Dose Admin Nitroglycerin 0.4 mg Q5MINP PRN SL 04/23/25 17:00 Morphine Sulfate 2 mg Q30M PRN IV 04/23/25 17:00 Nicardipine/ Sodium Chloride 200 ml @ 50 mls/hr Q4H IV 04/23/25 17:00 Exam Vital Signs Vital Signs Date Time Temp Pulse Resp B/P (MAP) Pulse Ox O2 Delivery O2 Flow Rate FiO2 04/23/25 16:28 97.9 91 17 211/132 (158) 97 97.9 04/23/25 14:16 Room Air Exam Gen: 44-year-old male in no apparent distress Skin: Warm, dry, normal color and texture, no rash. HEENT: Normocephalic atraumatic, mucous membranes moist and pink. Neck: Cervical and supraclavicular nodes normal without enlargement, trachea is midline, thyroid gland is normal without masses. Pulmonary: Clear to auscultation and percussion bilaterally. Cardiac: Regular rate and rhythm. No murmur Abdomen: Soft, nontender, nondistended, bowel sounds present all 4 quadrants, no guarding, no rigidity, no organomegaly. Extremities: No cyanosis, clubbing, no edema Neuro left-sided deficits and mild slurred speech from previous CVA Labs/Xrays ORDERING PHYSICIAN: STEPAN LEAVITT MD PROCEDURE(s): CXRP - CHEST PORTABLE REASON: sob ORDER NUMBER(s): [id number], ACCESSION NUMBER(s): [id number] EXAM: XY CHEST PORTABLE HISTORY: sob COMPARISON: XY CHEST PORTABLE on DOS: 12/13/24 TECHNIQUE: Portable upright AP view of the chest was performed. FINDINGS: No pneumothorax, consolidative infiltrates, or pulmonary edema. The heart is enlarged. IMPRESSION: Cardiomegaly without evidence of acute intrathoracic process. Labs Test 04/23/25 17:04 04/23/25 14:11 Range/Units White Blood Count 8.9 4.4-10.8 10^3/uL Red Blood Count 5.71 4.5-5.90 10^6/uL Hemoglobin 16.7 13.5-17.5 g/dL Hematocrit 48.4 41.0-53.0 % Mean Corpuscular Volume 84.7 80.0-100.0 fL Mean Corpuscular Hemoglobin 29.3 28.0-32.0 pg Mean Corpuscular Hemoglobin Concent 34.5 32.0-36.0 g/dL Red Cell Distribution Width 13.5 11.8-14.3 % Platelet Count 218 140-450 10^3/uL Mean Platelet Volume 8.6 6.9-10.8 fL Neutrophils (%) (Auto) 60.7 37.0-80.0 % Lymphocytes (%) (Auto) 23.2 10.0-50.0 % Monocytes (%) (Auto) 5.3 0.0-12.0 % Eosinophils (%) (Auto) 10.2 H 0.0-7.0 % Basophils (%) (Auto) 0.6 0.0-2.0 % Neutrophils # (Auto) 5.4 1.6-8.6 10 ^3/uL Lymphocytes # (Auto) 2.1 0.4-5.4 10 ^3/uL Monocytes # (Auto) 0.5 0-1.3 10 ^3/uL Eosinophils # (Auto) 0.9 H 0-0.8 10 ^3/uL Basophils # (Auto) 0 0-0.2 10 ^3/uL Nucleated Red Blood Cells 0.0 % Sodium Level 142 136-145 mmol/L Potassium Level 4.0 3.5-5.1 mmol/L Chloride Level 105 98-107 mmol/L Carbon Dioxide Level 27 20-31 mmol/L Anion Gap 10 5-15 Blood Urea Nitrogen 19 9-23 mg/dL Creatinine 1.21 0.700-1.30 mg/dL Glomerular Filtration Rate Calc 77 >90 mL/min BUN/Creatinine Ratio 15.7 10.0-20.0 Serum Glucose 254 H 74-106 mg/dL Calcium Level 10.0 8.7-10.4 mg/dL SEPSIS Sepsis Screen Date sepsis recognized/suspect: Apr 23, 2025 Time Sepsis recognized/suspect: 1348 Recent Procedure: No On Antibiotic Therapy: No Respiratory Rate >20: No Heart Rate >90: Yes Temp<36 C (96.8 F) or >38.3 C: No SBP <90 or MAP <65 mmHG: No New Acute Mental Status Change: No Is the patient on CPAP, BIPAP,: No Physician Orders Chest Portable (04/23/25 13:58) Troponin-I Hs (04/23/25 16:58) Electrocardigram (04/23/25 14:54) Admit (04/23/25 16:53) Nitroglycerin Sublingual (Ntrostat Subli (04/23/25 17:00) Morphine Sulfate Injection (04/23/25 17:00) Stat Ekg For Chest Pain (04/23/25 16:53) Notify Md Of Changes From Base (04/23/25 16:53) Supervisor Paste Mixing For 24 Hours (04/23/25 16:53) Emergency Dysrhythmia Protocol (04/23/25 16:53) Rhythm Strips Once Every Shift (04/23/25 16:53) Oxygen By Nasal Cannula (04/23/25 16:53) Nicardipine Hcl In Sodium Chlo (Cardene (04/23/25 17:00) Thyroid Stimulating Hormone (04/23/25 17:26) Amlodipine Tablet (Norvasc Tablet) (04/24/25 10:00) Atorvastatin (Lipitor) (04/23/25 22:00) Losartan Tablet (Cozaar Tablet) (04/24/25 10:00) Consistent Carb(Ccho)Diabetes (04/23/25 Dinner) Basic Metabolic Panel (04/24/25 04:00) Ondansetron Hcl (Zofran) (04/23/25 17:30) Cardiac Diet-2gna,Lofat,Lochol (04/23/25 Dinner) Condition: Critical (04/23/25 17:26) Acetaminophen Tablet (Tylenol Tablet) (04/23/25 17:30) Bedrest With Bathroom Privileg (04/23/25 17:26) Glucose Blood (Accu-Chek Comfort Curve T (04/23/25 18:00) Mild Sliding Scale Npo - Q6hr (04/23/25 18:00) Dextrose 50% Syringe (04/23/25 17:30) Vital Signs Date Time Temp Pulse Resp B/P (MAP) Pulse Ox O2 Delivery O2 Flow Rate FiO2 04/23/25 16:28 97.9 91 17 211/132 (158) 97 97.9 04/23/25 14:16 104 18 95 Room Air 04/23/25 14:16 97.8 104 18 185/120 (141) 95 97.8 04/23/25 14:16 185/120 04/23/25 14:05 91 04/23/25 13:58 91 04/23/25 13:48 99.4 106 20 212/122 (152) 95 99.4 Laboratory Tests Test 04/23/25 14:11 White Blood Count 8.9 10^3/uL (4.4-10.8) Medications Medications Dose Ordered Sig/Javier Route Start Time Stop Time Status Last Admin Dose Admin Amlodipine Besylate 10 mg ONCE ONCE PO 04/23/25 14:00 04/23/25 14:01 DC 04/23/25 14:16 10 MG Assessment/Plan Assessment/Plan Assessment Hypertensive emergency Diabetes mellitus, uncontrolled Noncompliant Plan Admit the patient to ICU to the hospitalist Continue nicardipine drip Resume home medications Continue treatment per orders Total critical care time excluding procedures performed this 50 minutes. Plan discussed with: Patient My Orders Orders - KATHY HANLEY AGACNP Procedure Category Date Status Time Admit ADMIT 04/23/25 Transmitted 16:53 Nitroglycerin PHA 04/23/25 In Process Sublingual (Ntrostat 17:00 Morphine Sulfate PHA 04/23/25 In Process Injection 17:00 Stat Ekg For Chest COY 04/23/25 In Process Pain 16:53 Notify Of Changes COY 04/23/25 In Process From Base 16:53 Supervisor Paste Mixing For COY 04/23/25 In Process 24 Hours 16:53 Emergency Dysrhythmia COY 04/23/25 In Process Protocol 16:53 Rhythm Strips Once COY 04/23/25 In Process Every Shift 16:53 Oxygen By Nasal RT 04/23/25 Transmitted Cannula 16:53 Thyroid Stimulating LAB 04/23/25 Transmitted Hormone 17:26 Amlodipine Tablet PHA 04/24/25 Transmitted (Norvasc Tablet) 10:00 Atorvastatin (Lipitor) PHA 04/23/25 Transmitted 22:00 Losartan Tablet PHA 04/24/25 Transmitted (Cozaar Tablet) 10:00 Consistent DIET 04/23/25 Transmitted Carb(Ccho)Diabetes Dinner Basic Metabolic Panel LAB 04/24/25 Verified 04:00 Ondansetron Hcl PHA 04/23/25 Transmitted (Zofran) 17:30 Cardiac DIET 04/23/25 Transmitted Diet-2gna,Lofat,Lochol Dinner Condition: Critical COY 04/23/25 Transmitted 17:26 Acetaminophen Tablet PHA 04/23/25 Transmitted (Tylenol Tablet) 17:30 Bedrest With Bathroom COY 04/23/25 Transmitted Privileg 17:26 Glucose Blood PHA 04/23/25 Transmitted (Accu-Chek Comfort 18:00 Mild Sliding Scale PHA 04/23/25 Transmitted Npo - Q6hr 18:00 Dextrose 50% Syringe PHA 04/23/25 Transmitted 17:30 Date of Service: Apr 23, 2025 Billing Provider: KATHY HANLEY Common Visit Codes: [id number] CARE 30-74 MIN KATHY HANLEY Apr 23, 2025 17:36
[2025-04-23] MEDS: ACCU-CHEK COMFORT CURVE STRIP VI SCH (18:30)
[2025-04-23 19:12] VITALS: RESP 14
[2025-04-23] MEDS: InsuLIN REG 1unit/0.01ml Soln (100units/ml) SC SCH (19:33)
[2025-04-23 19:51] VITALS: PULSE 93
[2025-04-23 20:20] LABS: Urine Protein, UAD 1+ (Negative)
[2025-04-23] MEDS: ATORVASTATIN 20 MG TAB PO SCH (22:10)
[2025-04-23 22:45] VITALS: PULSE 112; RESP 20; O2SAT 96
[2025-04-23 22:50] VITALS: BP 160/95; PULSE 112; RESP 20; TEMP 98.2; O2SAT 96
[2025-04-24] VITALS (7 sets, daily range): BP systolic 142–160; BP diastolic 85–109; PULSE 68–112; RESP 16–20; TEMP 36.8; O2SAT 96–98
[2025-04-24 05:50] LABS: Anion Gap 9 (5-15); Carbon Dioxide 28 mmol/L (20-31); Chloride 104 mmol/L (98-107); Potassium 3.6 mmol/L (3.5-5.1); Sodium 141 mmol/L (136-145)
[2025-04-24 05:51] LABS: Calcium 9.7 mg/dL (8.7-10.4)
[2025-04-24 05:56] LABS: BUN/Creatinine Ratio 17.0 (10.0-20.0); Blood Urea Nitrogen 15 mg/dL (9-23)
[2025-04-24 06:01] LABS: Glucose 162 mg/dL (74-106)
--- NOTE | 2025-04-24 07:26 | ECG ---
[facility] Test Date: 2025-04-23 Test Time: 13:58:32 Pat Name: WALTER OLIVEIRA Department: ER Room: 0212T Gender: M [employer] Administrator: JASON : 1980 Requested By: STEPAN LEAVITT Order Number: [id number] Reading MD: Measurements Intervals [place] Rate: 91 P: 33 SD: 172 QRS: 175 QRSD: 102 T: 57 QT: 386 QTc: 475 Interpretive Statements Sinus rhythm Probable left atrial enlargement Consider right ventricular hypertrophy Inferior infarct, old Please click the below link to view image of tracing.
[2025-04-24] MEDS: LOSARTAN POTASSIUM 50 MG TAB PO SCH (09:58)
[2025-04-24] MEDS ORDERED: LOSARTAN POTASSIUM 25 MG TAB PO SCH (10:00)
[2025-04-24] MEDS: LORazepam 0.5 MG TAB PO PRN (11:29)
[2025-04-24] MEDS ORDERED: LOSA-534 PO (13:11)
--- NOTE | 2025-04-24 15:43 | DVHDSRES ---
Discharge Summary Date of Admission Resident Creating Document: NOHEMI GARZON Apr 23, 2025 at 16:53 Date of Discharge: Apr 24, 2025 Admitting Diagnosis # hypertensive emergency Labs/Diagnostic Data: Laboratory Results Test 04/24/25 11:09 04/24/25 05:05 04/23/25 17:04 04/23/25 14:11 POC Glucose 289 mg/dl (70-106) Sodium Level 141 mmol/L (136-145) Potassium Level 3.6 mmol/L (3.5-5.1) Chloride Level 104 mmol/L (98-107) Carbon Dioxide Level 28 mmol/L (20-31) Anion Gap 9 (5-15) Blood Urea Nitrogen 15 mg/dL (9-23) Creatinine 0.88 mg/dL (0.700-1.30) Glomerular Filtration Rate Calc 110 mL/min (>90) BUN/Creatinine Ratio 17.0 (10.0-20.0) Serum Glucose 162 mg/dL (74-106) Calcium Level 9.7 mg/dL (8.7-10.4) Troponin I High Sensitivity 6 ng/L (</=54) Thyroid Stimulating Hormone (TSH) 1.30 uIU/mL (0.55-4.78) White Blood Count 8.9 10^3/uL (4.4-10.8) Red Blood Count 5.71 10^6/uL (4.5-5.90) Hemoglobin 16.7 g/dL (13.5-17.5) Hematocrit 48.4 % (41.0-53.0) Mean Corpuscular Volume 84.7 fL (80.0-100.0) Mean Corpuscular Hemoglobin 29.3 pg (28.0-32.0) Mean Corpuscular Hemoglobin Concent 34.5 g/dL (32.0-36.0) Red Cell Distribution Width 13.5 % (11.8-14.3) Platelet Count 218 10^3/uL (140-450) Mean Platelet Volume 8.6 fL (6.9-10.8) Neutrophils (%) (Auto) 60.7 % (37.0-80.0) Lymphocytes (%) (Auto) 23.2 % (10.0-50.0) Monocytes (%) (Auto) 5.3 % (0.0-12.0) Eosinophils (%) (Auto) 10.2 % (0.0-7.0) Basophils (%) (Auto) 0.6 % (0.0-2.0) Neutrophils # (Auto) 5.4 10 ^3/uL (1.6-8.6) Lymphocytes # (Auto) 2.1 10 ^3/uL (0.4-5.4) Monocytes # (Auto) 0.5 10 ^3/uL (0-1.3) Eosinophils # (Auto) 0.9 10 ^3/uL (0-0.8) Basophils # (Auto) 0 10 ^3/uL (0-0.2) Nucleated Red Blood Cells 0.0 % B-Type Natriuretic Peptide 16.98 pg/mL (0-100) Test 04/23/25 14:00 Urine Color Yellow (Yellow) Urine Clarity Clear (Clear) Urine pH 6.0 (5.0-9.0) Urine Specific [place] 1.017 (1.001-1.035) Urine Protein 1+ (Negative) Urine Ketones Negative (Negative) Urine Blood Negative /uL (Negative) Urine Nitrite Negative (Negative) Urine Bilirubin Negative (Negative) Urine Urobilinogen Normal mg/dL (Negative) Urine Leukocyte Esterase Negative /uL (Negative) Urine RBC 1 /hpf (0 - 3) Urine Microscopic WBC < 1 /HPF (0-3) Urine Squamous Epithelial Cells None seen /hpf (<5) Urine Bacteria None seen /hpf (None Seen) Urine Glucose 4+ mg/dL (Normal) Other Laboratory Tests 04/24/25 05:05 04/23/25 14:11 Brief Hx & Hospital Course: patient is a 44-year-old male with past medical history of [id number] diabetes mellitus, history of TIA in November, hypertension, came to the ED because his blood pressure was over 200 and was advised by his PCP to go to the emergency department for further evaluation he is using. he denied any headache, chest pain, shortness of breath, dizziness, vomitings. Surgical history had a right hip surgery, denies smoking, drinking, any drug use. [facility] Hospital course: Patient came to the ED because his blood pressure was 212/122 was in his PCP's clinic was recommended by his doctor to come to the emergency department. Patient had no symptoms of headache, chest pain, shortness of breath, dizziness, vomitings. He had a TIA in November with left-sided weakness. Patient is stable for discharge and agrees with the discharge plan. General: Patient alert and oriented in person, place and time. Patient following commands. HEENT: Normocephalic, atraumatic, moist mucous membranes Respiratory/pulmonary: Clear lungs bilaterally, vesicular murmurs present in almost all lung lea, no associated crackles or wheezes. Cardiovascular: Normal heart sounds S1 and S2 with no associated murmurs Abdomen: Abdomen nondistended, there is no pain to palpation in any of the abdominal quadrants, no palpable masses. Extremities: There is no peripheral edema present at the lower extremities. Peripheral Pulses: 3+ Radial (R). 3+ Radial (L). 3+ Dorsalis pedis (R). 3+ Dorsalis pedis(L) Skin: No rashes or pruritus, there is no sacral edema present at this time. Neurological: Intact cranial nerves with no focal neurologic deficits Operations or Procedures ORDERING PHYSICIAN: STEPAN LEAVITT MD PROCEDURE(s): CXRP - CHEST PORTABLE REASON: sob ORDER NUMBER(s): [id number], ACCESSION NUMBER(s): [id number] EXAM: XY CHEST PORTABLE HISTORY: sob COMPARISON: XY CHEST PORTABLE on DOS: 12/13/24 TECHNIQUE: Portable upright AP view of the chest was performed. FINDINGS: No pneumothorax, consolidative infiltrates, or pulmonary edema. The heart is enlarged. IMPRESSION: Cardiomegaly without evidence of acute intrathoracic process. Condition at Discharge: Stable Final Diagnosis/Problems List # hypertensive emergency # history of TIA # history of diabetes mellitus Discharge Disposition: Home Discharge Instruct/Medications Diet: Consistent carbohydrate Activity: No Restrictions, As Tolerated Follow Up/Referral: follow up with discharge clinic in 1-2 weeks Medications: As per EMR Scheduled Amlodipine Besylate (Amlodipine Besylate), 1 TAB PO DAILY Aspirin (Aspirin Low Dose), 81 MG PO DAILY Atorvastatin Calcium (Atorvastatin Calcium), 20 MG PO HS Clopidogrel Bisulfate (Clopidogrel), 75 MG PO DAILY Losartan Potassium (Losartan Potassium), 1 TAB PO DAILY Metformin Hydrochloride (Metformin Hcl), 1 TAB PO BID Discharge Statement: "Patient was advised to return to the ER or call 911 if any headaches, dizziness, shortness of breath, chest pain, abdominal pain, bleeding, fevers, or worsening of medical condition. Patient was counseled about treatment plan, medications, possible side effects, patientverbalized understanding. All questions were answered to the best of my ability. This discharge took greater then 30 minutes in planning, reviewing documentation, counseling the patient, and discussing with other team members." ASSESSMENT ASSESSMENT Assessment # hypertensive emergency NOHEMI GARZON RESIDENT Apr 24, 2025 15:43
== END 2025-04-24 15:38 | disposition home or self-care (01) | DRG 199 ==
LOC: ER 13:34 → OVERFLOW 16:53 → TELE-CENTR 22:45
PROVIDERS: ADMIT Student in an Organized Health Care Education/Training Program; ATTEND Student in an Organized Health Care Education/Training Program
DX: I16.1 Hypertensive emergency (principal); E11.65 Type 2 diabetes mellitus with hyperglycemia; Z79.84 Long term (current) use of oral hypoglycemic drugs; Z79.82 Long term (current) use of aspirin; Z79.899 Other long term (current) drug therapy; Z91.199 Patient's noncompliance with other medical treatment and regimen due to unspecified reason; Z86.73 Personal history of transient ischemic attack (TIA), and cerebral infarction without residual deficits
CPT/HCPCS: 36415; 71045; 80048; 81001; 82962; 83880; 84443; 84484; 85025; 93005; 99291; 99292; G0378; J1815